=== PATIENT | female | born 1935 | race African-American/Black ===

== ENCOUNTER 2017-10-29 11:17 | Observation (INO) ==
[2017-10-29] MEDS ORDERED: ADENOSINE 6 MG/2 ML VIAL ONE ×3 (11:33→11:44)
[2017-10-29] MEDS ORDERED: ADENOSINE 6 MG/2 ML VIAL IV STA (11:45)
[2017-10-29 12:00] LABS: Basophils % 0.4 % (0.0-0.8); Eosinophils # 0.1 10*3/uL (0.0-0.87); Eosinophils % 1.5 % (0.00-10.9); Hematocrit 36.7 VOL% (35.7-47.0); Hemoglobin 11.4 GM/DL (12.0-16.0); Immature Granulocytes % 0.3 %; Immature Granulocytes Absolute 0.02 #; Lymphocytes # 3.3 10*3/uL (1.4-4.0); Lymphocytes % 41.8 % (21.3-54.2); Mean Corpuscular HGB Conc 31.1 GM/DL (32-36); Mean Corpuscular Hemoglobin 28 PG (27-34); Mean Corpuscular Volume 90.6 FL (87-102); Mean Platelet Volume 10.1 FL (9.6-12.0); Monocytes # 0.6 10*3/uL (0.11-0.8); Monocytes % 7.8 % (1.7-12.7); Neutrophils # 3.8 10*3/uL (1.4-7.4); Neutrophils % 48.2 % (38.7-73.9); Platelet Count 255 T/CUMM (130-400); Red Blood Count 4.05 MC/CUMM (3.8-5.5); Red Cell Distribution Width 13.8 % (9.3-17.3); White Blood Count 7.9 T/CUMM (4-12)
[2017-10-29 12:27] LABS: Alanine Aminotransferase 13 U/L (13-56); Alkaline Phosphatase 51 U/L (45-117); Aspartate Amino Transferase 14 U/L (0-37); Bilirubin,Total < 0.39 MG/DL (0.2-1.0); Blood Urea Nitrogen 17 MG/DL (7-18); Calcium 9.8 MG/DL (8.5-10.1); Glucose 147 MG/DL (74-106); Osmolality,Calculated 283.4 MOS/KG (273-304); Potassium 3.6 MMOL/L (3.5-5.1); Sodium 140 MMOL/L (136-145); Total Protein 7.4 G/DL (6.4-8.3); Troponin I Only < 0.015 NG/ML (0.00-0.045)
[2017-10-29] MEDS ORDERED: POTASSIUM CHLORIDE 20 MEQ TABLET PO PRN (14:50)
[2017-10-29] MEDS ORDERED: BISACODYL 5 MG TABLET PO PRN (14:50)
[2017-10-29] MEDS ORDERED: MAGNESIUM SULF RIDER 4 GM in PREMIX 1 EACH IV PRN ×2 (14:50→17:00)
[2017-10-29] MEDS ORDERED: ZALEPLON 5 MG CAPSULE PO PRN (14:50)
[2017-10-29] MEDS ORDERED: guaiFENesin/DM ER 600-30 MG TABLET PO PRN (14:50)
[2017-10-29] MEDS ORDERED: ACETAMINOPHEN 325 MG TABLET PO PRN (14:50)
[2017-10-29] MEDS ORDERED: MAGNESIUM SULF RIDER 2 GM in PREMIX 1 EACH IV PRN ×2 (14:50→17:00)
[2017-10-29] MEDS ORDERED: ONDANSETRON 4 MG/2 ML VIAL IV PRN (14:50)
[2017-10-29] MEDS: METOPROLOL SUCCINATE XL 50 MG TABLET PO SCH (18:33)
[2017-10-29] MEDS: ASPIRIN EC 81 MG TABLET PO SCH (18:34)
[2017-10-29] MEDS ORDERED: AMITRIPTYLINE 50 MG TABLET PO SCH (19:00)
[2017-10-29] MEDS ORDERED: ENOXAPARIN 30 MG/0.3 ML SYRINGE SUBCUT SCH (21:00)
[2017-10-29] MEDS ORDERED: SIMVASTATIN 40 MG TABLET PO SCH (21:00)
[2017-10-30 05:21] LABS: Basophils % 0.3 % (0.0-0.8); Eosinophils # 0.1 10*3/uL (0.0-0.87); Eosinophils % 1.4 % (0.00-10.9); Hematocrit 35.4 VOL% (35.7-47.0); Hemoglobin 11.5 GM/DL (12.0-16.0); Immature Granulocytes % 0.1 %; Immature Granulocytes Absolute 0.01 #; Lymphocytes # 2.8 10*3/uL (1.4-4.0); Lymphocytes % 36.6 % (21.3-54.2); Mean Corpuscular HGB Conc 32.5 GM/DL (32-36); Mean Corpuscular Hemoglobin 28 PG (27-34); Mean Corpuscular Volume 87.2 FL (87-102); Mean Platelet Volume 9.9 FL (9.6-12.0); Monocytes # 0.7 10*3/uL (0.11-0.8); Monocytes % 8.4 % (1.7-12.7); Neutrophils # 4.1 10*3/uL (1.4-7.4); Neutrophils % 53.2 % (38.7-73.9); Platelet Count 248 T/CUMM (130-400); Red Blood Count 4.06 MC/CUMM (3.8-5.5); Red Cell Distribution Width 13.7 % (9.3-17.3); White Blood Count 7.7 T/CUMM (4-12)
[2017-10-30 06:11] LABS: Calcium 9.7 MG/DL (8.5-10.1); Magnesium 2.3 MG/DL (1.8-2.4); Osmolality,Calculated 279.4 MOS/KG (273-304); Risk Ratio 2.65
[2017-10-30] MEDS ORDERED: PANTOPRAZOLE 40 MG TABLET PO SCH (09:00)
[2017-10-30] MEDS ORDERED: amLODIPine 10 MG TABLET PO SCH (09:00)
[2017-10-30] MEDS: METOPROLOL SUCCINATE XL 50 MG TABLET PO SCH (09:22)
[2017-10-30] MEDS: ASPIRIN EC 81 MG TABLET PO SCH (09:22)
[2017-10-30 11:33] VITALS: BP 132/92
== END 2017-10-30 12:20 | disposition home or self-care (01) ==
LOC: N.ED 11:17 → N.EDINP 11:17 → N.TELES 16:30
PROVIDERS: ADMIT Internal Medicine Cardiovascular Disease; ATTEND Internal Medicine Cardiovascular Disease

== ENCOUNTER 2017-11-07 16:53 | Inpatient (IN) ==
[2017-11-07] MEDS ORDERED: SODIUM CHLORIDE 0.9% 1,000 ML IV STA (16:58)
[2017-11-07] MEDS ORDERED: DILTIAZEM 50 MG/10 ML VIAL IV STA (16:58)
[2017-11-07] MEDS ORDERED: DILTIAZEM 25 MG/5 ML VIAL IV STA (17:05)
[2017-11-07] MEDS ORDERED: MAGNESIUM SULF RIDER 2 GM in PREMIX 1 EACH IV PRN (17:33)
[2017-11-07] MEDS ORDERED: ONDANSETRON 4 MG/2 ML VIAL IV PRN (17:33)
[2017-11-07] MEDS ORDERED: MAGNESIUM SULF RIDER 4 GM in PREMIX 1 EACH IV PRN (17:33)
[2017-11-07] MEDS ORDERED: ACETAMINOPHEN 325 MG TABLET PO PRN (17:33)
[2017-11-07] MEDS ORDERED: DOCUSATE SODIUM 100 MG CAPSULE PO PRN (17:33)
[2017-11-07] MEDS ORDERED: ACETAMINOPHEN 500 MG TABLET PO STA (17:42)
[2017-11-07] MEDS ORDERED: ACETAMINOPHEN 500 MG TABLET ONE (17:42)
[2017-11-07 17:50] LABS: Basophils % 0.4 % (0.0-0.8); Eosinophils # 0.1 10*3/uL (0.0-0.87); Eosinophils % 1.3 % (0.00-10.9); Hematocrit 31.8 VOL% (35.7-47.0); Immature Granulocytes % 0.1 %; Immature Granulocytes Absolute 0.01 #; Lymphocytes # 1.5 10*3/uL (1.4-4.0); Lymphocytes % 20.7 % (21.3-54.2); Mean Corpuscular HGB Conc 31.4 GM/DL (32-36); Mean Corpuscular Hemoglobin 28 PG (27-34); Mean Corpuscular Volume 89.8 FL (87-102); Mean Platelet Volume 9.7 FL (9.6-12.0); Monocytes # 0.5 10*3/uL (0.11-0.8); Monocytes % 6.7 % (1.7-12.7); Neutrophils # 5.1 10*3/uL (1.4-7.4); Neutrophils % 70.8 % (38.7-73.9); Platelet Count 232 T/CUMM (130-400); Red Blood Count 3.54 MC/CUMM (3.8-5.5); Red Cell Distribution Width 13.5 % (9.3-17.3); White Blood Count 7.1 T/CUMM (4-12)
[2017-11-07 17:59] LABS: INR 1.2; PT Patient Result 12.1 SECS
[2017-11-07 18:11] LABS: Alanine Aminotransferase 10 U/L (13-56); Albumin 3.2 G/DL (3.4-5.0); Alkaline Phosphatase 46 U/L (45-117); Aspartate Amino Transferase 13 U/L (0-37); Bilirubin,Total < 0.39 MG/DL (0.2-1.0); Blood Urea Nitrogen 18 MG/DL (7-18); Calcium 8.6 MG/DL (8.5-10.1); Glucose 123 MG/DL (74-106); Osmolality,Calculated 288.8 MOS/KG (273-304); Sodium 144 MMOL/L (136-145); Total Protein 6.3 G/DL (6.4-8.3); Troponin I Only 0.044 NG/ML (0.00-0.045)
[2017-11-07] MEDS: DILTIAZEM 60 MG TABLET PO SCH (21:08)
[2017-11-07] MEDS: SODIUM CHLORIDE 0.9% 1,000 ML IV SCH (21:08)
[2017-11-07] MEDS: ENOXAPARIN 40 MG/0.4 ML SYRINGE SUBCUT SCH (21:09)
[2017-11-08 05:14] LABS: Basophils % 0.3 % (0.0-0.8); Eosinophils # 0.1 10*3/uL (0.0-0.87); Eosinophils % 1.6 % (0.00-10.9); Hematocrit 30.8 VOL% (35.7-47.0); Hemoglobin 9.7 GM/DL (12.0-16.0); Immature Granulocytes % 0.3 %; Immature Granulocytes Absolute 0.02 #; Lymphocytes # 2.2 10*3/uL (1.4-4.0); Mean Corpuscular HGB Conc 31.5 GM/DL (32-36); Mean Corpuscular Hemoglobin 28 PG (27-34); Mean Corpuscular Volume 89.5 FL (87-102); Monocytes # 0.6 10*3/uL (0.11-0.8); Monocytes % 9.1 % (1.7-12.7); Neutrophils # 3.9 10*3/uL (1.4-7.4); Neutrophils % 56.7 % (38.7-73.9); Platelet Count 226 T/CUMM (130-400); Red Blood Count 3.44 MC/CUMM (3.8-5.5); Red Cell Distribution Width 13.6 % (9.3-17.3); White Blood Count 6.9 T/CUMM (4-12)
[2017-11-08] MEDS: SODIUM CHLORIDE 0.9% 1,000 ML IV SCH (05:37)
[2017-11-08 05:52] LABS: Albumin 3.1 G/DL (3.4-5.0); Bilirubin,Total 0.5 MG/DL (0.2-1.0); Calcium 8.7 MG/DL (8.5-10.1); Potassium 3.4 MMOL/L (3.5-5.1); Total Protein 5.9 G/DL (6.4-8.3)
[2017-11-08] MEDS ORDERED: DILTIAZEM 50 MG/10 ML VIAL IV ONE (06:40)
[2017-11-08] MEDS ORDERED: DILTIAZEM INJ 100 MG in SODIUM CHLORIDE 0.9% 100 ML IV SCH (07:00)
[2017-11-08] MEDS ORDERED: SODIUM CHLORIDE 0.9% 1,000 ML IV SCH (07:00)
[2017-11-08] MEDS: PANTOPRAZOLE 40 MG TABLET PO SCH (08:33)
[2017-11-08] MEDS: DILTIAZEM 60 MG TABLET PO SCH (08:33)
[2017-11-08] MEDS: DILTIAZEM 30 MG TABLET PO SCH ×4 (09:20→21:04)
[2017-11-08] MEDS ORDERED: LOPERAMIDE 2 MG CAPSULE PO PRN (10:39)
[2017-11-08] MEDS ORDERED: MAGNESIUM OXIDE 400 MG TABLET PO SCH (11:00)
[2017-11-08] MEDS: AMITRIPTYLINE 50 MG TABLET PO SCH (18:23)
[2017-11-08] MEDS: ENOXAPARIN 40 MG/0.4 ML SYRINGE SUBCUT SCH (21:04)
[2017-11-08] MEDS: SIMVASTATIN 40 MG TABLET PO SCH (21:04)
[2017-11-08] MEDS: POTASSIUM CHLORIDE 20 MEQ TABLET PO PRN (21:05)
[2017-11-09 04:34] LABS: Basophils % 0.4 % (0.0-0.8); Eosinophils # 0.1 10*3/uL (0.0-0.87); Eosinophils % 1.1 % (0.00-10.9); Hematocrit 35.1 VOL% (35.7-47.0); Hemoglobin 11.2 GM/DL (12.0-16.0); Immature Granulocytes % 0.3 %; Immature Granulocytes Absolute 0.02 #; Lymphocytes # 1.9 10*3/uL (1.4-4.0); Lymphocytes % 24.2 % (21.3-54.2); Mean Corpuscular HGB Conc 31.9 GM/DL (32-36); Mean Corpuscular Hemoglobin 28 PG (27-34); Mean Corpuscular Volume 87.8 FL (87-102); Mean Platelet Volume 10.1 FL (9.6-12.0); Monocytes # 0.6 10*3/uL (0.11-0.8); Monocytes % 7.3 % (1.7-12.7); Neutrophils # 5.2 10*3/uL (1.4-7.4); Neutrophils % 66.7 % (38.7-73.9); Platelet Count 239 T/CUMM (130-400); Red Cell Distribution Width 13.4 % (9.3-17.3); White Blood Count 7.9 T/CUMM (4-12)
[2017-11-09 05:03] LABS: Calcium 9.5 MG/DL (8.5-10.1); Osmolality,Calculated 279.3 MOS/KG (273-304); Potassium 3.6 MMOL/L (3.5-5.1)
[2017-11-09] MEDS ORDERED: ADENOSINE 6 MG/2 ML VIAL ONE (07:41)
[2017-11-09] MEDS: PANTOPRAZOLE 40 MG TABLET PO SCH ×2 (08:47→09:28)
[2017-11-09] MEDS: ASPIRIN EC 81 MG TABLET PO SCH (08:47)
[2017-11-09] MEDS: MAGNESIUM OXIDE 400 MG TABLET PO SCH (08:47)
[2017-11-09] MEDS: METOPROLOL SUCCINATE XL 50 MG TABLET PO SCH (08:47)
[2017-11-09] MEDS ORDERED: diphenhydrAMINE CAP 25 MG CAPSULE PO PRN (15:21)
[2017-11-09] MEDS ORDERED: MAGNESIUM HYDROXIDE SUSP 30 ML UDCUP PO PRN (15:22)
[2017-11-09] MEDS: AMITRIPTYLINE 50 MG TABLET PO SCH (17:59)
[2017-11-09] MEDS: ENOXAPARIN 40 MG/0.4 ML SYRINGE SUBCUT SCH (21:17)
[2017-11-09] MEDS: SIMVASTATIN 40 MG TABLET PO SCH (21:17)
[2017-11-10 06:01] LABS: Basophils % 0.4 % (0.0-0.8); Eosinophils # 0.1 10*3/uL (0.0-0.87); Eosinophils % 0.8 % (0.00-10.9); Hematocrit 35.7 VOL% (35.7-47.0); Hemoglobin 11.9 GM/DL (12.0-16.0); Immature Granulocytes % 0.3 %; Immature Granulocytes Absolute 0.02 #; Lymphocytes % 26.1 % (21.3-54.2); Mean Corpuscular HGB Conc 33.3 GM/DL (32-36); Mean Corpuscular Hemoglobin 29 PG (27-34); Mean Corpuscular Volume 85.4 FL (87-102); Mean Platelet Volume 9.8 FL (9.6-12.0); Monocytes # 0.7 10*3/uL (0.11-0.8); Monocytes % 9.3 % (1.7-12.7); Neutrophils # 4.9 10*3/uL (1.4-7.4); Neutrophils % 63.1 % (38.7-73.9); Platelet Count 248 T/CUMM (130-400); Red Blood Count 4.18 MC/CUMM (3.8-5.5); Red Cell Distribution Width 13.4 % (9.3-17.3); White Blood Count 7.8 T/CUMM (4-12)
[2017-11-10 06:28] LABS: Calcium 9.7 MG/DL (8.5-10.1); Osmolality,Calculated 275.7 MOS/KG (273-304); Potassium 3.3 MMOL/L (3.5-5.1)
[2017-11-10] MEDS ORDERED: HEPARIN/NACL 0.9% 2 UNITS/ML 1,000 ML IV ONE ×2 (07:23→07:30)
[2017-11-10] MEDS ORDERED: MIDAZOLAM 2 MG/2 ML VIAL ONE ×2 (07:23→08:36)
[2017-11-10] MEDS ORDERED: fentaNYL 100 MCG/2 ML VIAL ONE ×2 (07:23→08:36)
[2017-11-10] MEDS ORDERED: LIDOCAINE 1% 20 ML VIAL ONE (07:23)
[2017-11-10] MEDS ORDERED: HEPARIN 5,000 UNIT/1 ML VIAL ONE (08:07)
[2017-11-10] MEDS ORDERED: ISOPROTERENOL 1 MG/5 ML VIAL IV ONE (08:55)
[2017-11-10] MEDS: MAGNESIUM OXIDE 400 MG TABLET PO SCH (14:20)
[2017-11-10] MEDS: POTASSIUM CHLORIDE 20 MEQ TABLET PO PRN ×3 (14:20→21:59)
[2017-11-10] MEDS: ASPIRIN EC 81 MG TABLET PO SCH (14:20)
[2017-11-10] MEDS: PANTOPRAZOLE 40 MG TABLET PO SCH ×2 (14:23→14:46)
[2017-11-10] MEDS: METOPROLOL SUCCINATE XL 50 MG TABLET PO SCH ×2 (14:46→21:59)
[2017-11-10] MEDS ORDERED: METOPROLOL TARTRATE 5 MG/5 ML VIAL IV ONE (16:30)
[2017-11-10] MEDS: AMITRIPTYLINE 50 MG TABLET PO SCH (18:15)
[2017-11-10] MEDS: SIMVASTATIN 40 MG TABLET PO SCH (21:59)
[2017-11-10] MEDS: ENOXAPARIN 40 MG/0.4 ML SYRINGE SUBCUT SCH (21:59)
[2017-11-11 05:55] LABS: Basophils % 0.1 % (0.0-0.8); Eosinophils # 0.1 10*3/uL (0.0-0.87); Eosinophils % 0.9 % (0.00-10.9); Hematocrit 34.6 VOL% (35.7-47.0); Hemoglobin 11.4 GM/DL (12.0-16.0); Immature Granulocytes % 0.2 %; Immature Granulocytes Absolute 0.02 #; Lymphocytes # 2.1 10*3/uL (1.4-4.0); Lymphocytes % 23.6 % (21.3-54.2); Mean Corpuscular HGB Conc 32.9 GM/DL (32-36); Mean Corpuscular Hemoglobin 29 PG (27-34); Mean Corpuscular Volume 86.5 FL (87-102); Mean Platelet Volume 10.3 FL (9.6-12.0); Monocytes % 10.7 % (1.7-12.7); Neutrophils # 5.8 10*3/uL (1.4-7.4); Neutrophils % 64.5 % (38.7-73.9); Platelet Count 228 T/CUMM (130-400); Red Cell Distribution Width 13.5 % (9.3-17.3)
[2017-11-11 06:23] LABS: Calcium 9.6 MG/DL (8.5-10.1); Osmolality,Calculated 278.5 MOS/KG (273-304); Potassium 4.2 MMOL/L (3.5-5.1)
[2017-11-11] MEDS: MAGNESIUM OXIDE 400 MG TABLET PO SCH (08:39)
[2017-11-11] MEDS: PANTOPRAZOLE 40 MG TABLET PO SCH (08:39)
[2017-11-11] MEDS: ASPIRIN EC 81 MG TABLET PO SCH (08:39)
[2017-11-11] MEDS: METOPROLOL SUCCINATE XL 50 MG TABLET PO SCH (08:39)
[2017-11-11] MEDS: DILTIAZEM 30 MG TABLET PO SCH ×2 (15:36→21:10)
[2017-11-11] MEDS: AMITRIPTYLINE 50 MG TABLET PO SCH (18:06)
[2017-11-11] MEDS: SIMVASTATIN 40 MG TABLET PO SCH (21:10)
[2017-11-11] MEDS: METOPROLOL SUCCINATE XL 100 MG TABLET PO SCH (21:10)
[2017-11-11] MEDS: ENOXAPARIN 40 MG/0.4 ML SYRINGE SUBCUT SCH (21:11)
[2017-11-12 04:42] LABS: Basophils % 0.4 % (0.0-0.8); Eosinophils # 0.2 10*3/uL (0.0-0.87); Eosinophils % 1.8 % (0.00-10.9); Hematocrit 34.1 VOL% (35.7-47.0); Hemoglobin 10.8 GM/DL (12.0-16.0); Immature Granulocytes % 0.4 %; Immature Granulocytes Absolute 0.03 #; Lymphocytes # 2.6 10*3/uL (1.4-4.0); Lymphocytes % 30.7 % (21.3-54.2); Mean Corpuscular HGB Conc 31.7 GM/DL (32-36); Mean Corpuscular Hemoglobin 28 PG (27-34); Mean Corpuscular Volume 88.1 FL (87-102); Mean Platelet Volume 10.3 FL (9.6-12.0); Monocytes # 0.9 10*3/uL (0.11-0.8); Monocytes % 10.2 % (1.7-12.7); Neutrophils # 4.8 10*3/uL (1.4-7.4); Neutrophils % 56.5 % (38.7-73.9); Platelet Count 210 T/CUMM (130-400); Red Blood Count 3.87 MC/CUMM (3.8-5.5); Red Cell Distribution Width 13.3 % (9.3-17.3); White Blood Count 8.5 T/CUMM (4-12)
[2017-11-12 05:10] LABS: Free T4 (Free Thyroxine) 1.12 NG/DL (0.76-1.46); Osmolality,Calculated 275.8 MOS/KG (273-304); Thyroid Stimulating Hormone 0.685 uIU/ml (0.358-3.74)
[2017-11-12] MEDS: PANTOPRAZOLE 40 MG TABLET PO SCH (08:39)
[2017-11-12] MEDS: MAGNESIUM OXIDE 400 MG TABLET PO SCH (08:39)
[2017-11-12] MEDS: METOPROLOL SUCCINATE XL 100 MG TABLET PO SCH (08:39)
[2017-11-12] MEDS: DILTIAZEM 30 MG TABLET PO SCH (08:39)
[2017-11-12] MEDS: ASPIRIN EC 81 MG TABLET PO SCH (08:39)
[2017-11-12 08:48] VITALS: BP 116/72
== END 2017-11-12 12:55 | disposition home or self-care (01) | DRG 274 ==
LOC: EDBD → EDUNIT# → N.EDINP 16:53 → N.ED 16:53 → N.TELES 18:35
PROVIDERS: ADMIT Internal Medicine Cardiovascular Disease; ATTEND Internal Medicine Cardiovascular Disease

== ENCOUNTER 2018-06-05 08:59 | Inpatient (IN) ==
[2018-06-05] MEDS ORDERED: hydrALAZINE 20 MG/1 ML VIAL IV STA ×2 (09:38→11:42)
[2018-06-05 10:36] LABS: Basophils % 0.3 % (0.0-0.8); Eosinophils # 0.1 10*3/uL (0.0-0.87); Eosinophils % 1.8 % (0.00-10.9); Hematocrit 41.5 VOL% (35.7-47.0); Hemoglobin 13.1 GM/DL (12.0-16.0); Immature Granulocytes % 0.1 %; Immature Granulocytes Absolute 0.01 #; Lymphocytes # 2.7 10*3/uL (1.4-4.0); Lymphocytes % 36.6 % (21.3-54.2); Mean Corpuscular HGB Conc 31.6 GM/DL (32-36); Mean Corpuscular Hemoglobin 28 PG (27-34); Mean Corpuscular Volume 88.5 FL (87-102); Mean Platelet Volume 10.5 FL (9.6-12.0); Monocytes # 0.7 10*3/uL (0.11-0.8); Monocytes % 9.4 % (1.7-12.7); Neutrophils # 3.8 10*3/uL (1.4-7.4); Neutrophils % 51.8 % (38.7-73.9); Platelet Count 248 T/CUMM (130-400); Red Blood Count 4.69 MC/CUMM (3.8-5.5); Red Cell Distribution Width 14.3 % (9.3-17.3); White Blood Count 7.3 T/CUMM (4-12)
[2018-06-05 10:49] LABS: Apearance,Urine CLOUDY (Clear); Bilirubin,Urine Negative (Negative); Blood, Urine Small mg/dL (Negative); Glucose,Urine (UA) Negative (Negative); Ketones,Urine Negative (Negative); Nitrite,Urine Negative (Negative); Protein,Urine 30 MG/DL; RBC,Urine 11 /HPF (0-4); Squamous Epithelial Cell,Urine Occasional /HPF (0-10); Urine Color Yellow (Yellow); Urine Specific Gravity 1.006 (1.001-1.035); Urine Urobilinogen < 2.0 EU/DL (0.2-1.0); WBC,Urine 149 /HPF (0-6)
[2018-06-05 11:05] LABS: Calcium 9.6 MG/DL (8.5-10.1); Osmolality,Calculated 282.1 MOS/KG (273-304); Potassium 4.4 MMOL/L (3.5-5.1)
[2018-06-05] MEDS ORDERED: CIPROFLOXACIN INJ 400 MG in PREMIX 1 EACH IV STA (11:43)
[2018-06-05] MEDS ORDERED: KETOROLAC 30 MG/1 ML VIAL ONE (13:17)
[2018-06-05] MEDS ORDERED: KETOROLAC 30 MG/1 ML VIAL IV STA (13:24)
[2018-06-05] MEDS ORDERED: ACETAMINOPHEN 325 MG TABLET PO PRN (13:48)
[2018-06-05] MEDS ORDERED: ONDANSETRON 4 MG/2 ML VIAL IV PRN (13:48)
[2018-06-05] MEDS ORDERED: SODIUM CHLORIDE 0.9% 1,000 ML IV SCH (14:00)
[2018-06-05] MEDS: DEXT 5% NACL 0.45% KCL 20 MEQ 20 MEQ/1,000 ML BAG IV SCH (18:40)
[2018-06-05] MEDS: DONEPEZIL 10 MG TABLET PO SCH (20:15)
[2018-06-05] MEDS: SIMVASTATIN 40 MG TABLET PO SCH (20:15)
[2018-06-05] MEDS: MECLIZINE 25 MG TABLET PO SCH (20:15)
[2018-06-05] MEDS: MEMANTINE 5 MG TABLET PO SCH (20:15)
[2018-06-05] MEDS: MELATONIN 3 MG TABLET PO SCH (20:15)
[2018-06-05] MEDS: LATANOPROST 0.005% OPH SOLN 2.5 ML BOTTLE BOTH EYES SCH (20:15)
[2018-06-05] MEDS ORDERED: ASPIRIN 325 MG TABLET ONE (22:27)
[2018-06-05] MEDS ORDERED: NITROGLYCERIN SL 0.4 MG TABLET SL ONE (22:28)
[2018-06-05] MEDS ORDERED: CLORAZEPATE 3.75 MG TABLET PO ONE (22:41)
[2018-06-05] MEDS ORDERED: CLORAZEPATE 3.75 MG TABLET ONE (22:45)
[2018-06-06] MEDS: CIPROFLOXACIN INJ 400 MG in PREMIX 1 EACH IV SCH ×2 (02:02→14:21)
[2018-06-06] MEDS: hydrALAZINE 20 MG/1 ML VIAL IV PRN ×3 (04:03→16:46)
[2018-06-06 05:54] LABS: Basophils % 0.3 % (0.0-0.8); Eosinophils # 0.1 10*3/uL (0.0-0.87); Hematocrit 37.2 VOL% (35.7-47.0); Hemoglobin 11.7 GM/DL (12.0-16.0); Immature Granulocytes % 0.3 %; Immature Granulocytes Absolute 0.02 #; Lymphocytes # 2.3 10*3/uL (1.4-4.0); Lymphocytes % 29.5 % (21.3-54.2); Mean Corpuscular HGB Conc 31.5 GM/DL (32-36); Mean Corpuscular Hemoglobin 27 PG (27-34); Mean Corpuscular Volume 87.1 FL (87-102); Mean Platelet Volume 10.8 FL (9.6-12.0); Monocytes # 0.8 10*3/uL (0.11-0.8); Monocytes % 9.5 % (1.7-12.7); Neutrophils # 4.7 10*3/uL (1.4-7.4); Neutrophils % 59.4 % (38.7-73.9); Platelet Count 253 T/CUMM (130-400); Red Blood Count 4.27 MC/CUMM (3.8-5.5); Red Cell Distribution Width 14.3 % (9.3-17.3); White Blood Count 7.9 T/CUMM (4-12)
[2018-06-06 06:07] LABS: Calcium 8.3 MG/DL (8.5-10.1); Osmolality,Calculated 279.5 MOS/KG (273-304); Potassium 3.3 MMOL/L (3.5-5.1)
[2018-06-06 06:11] LABS: CKMB % 0.9 %
[2018-06-06 06:15] LABS: Troponin I 0.054 NG/ML (0.00-0.045)
[2018-06-06] MEDS: MEMANTINE 5 MG TABLET PO SCH ×2 (11:51→20:29)
[2018-06-06] MEDS: DEXT 5% NACL 0.45% KCL 20 MEQ 20 MEQ/1,000 ML BAG IV SCH (11:51)
[2018-06-06] MEDS: PANTOPRAZOLE 40 MG TABLET PO SCH (11:51)
[2018-06-06] MEDS: CALCIUM (CITRATE)/VITAMIN D 200 MG-125 UNIT TABLET PO SCH (11:51)
[2018-06-06] MEDS: METOPROLOL SUCCINATE XL 100 MG TABLET PO SCH (11:51)
[2018-06-06] MEDS: MECLIZINE 25 MG TABLET PO SCH ×4 (11:51→20:29)
[2018-06-06] MEDS ORDERED: CYANOCOBALAMIN 1000 MCG/1 ML VIAL IM ONE (13:36)
[2018-06-06] MEDS ORDERED: LORazepam 2 MG/1 ML VIAL IV ONE (13:50)
[2018-06-06 16:51] LABS: CKMB % 0.9 %; Troponin I 0.023 NG/ML (0.00-0.045)
[2018-06-06] MEDS: MELATONIN 3 MG TABLET PO SCH (20:29)
[2018-06-06] MEDS: SIMVASTATIN 40 MG TABLET PO SCH (20:29)
[2018-06-06] MEDS: DONEPEZIL 10 MG TABLET PO SCH (20:29)
[2018-06-06] MEDS: LATANOPROST 0.005% OPH SOLN 2.5 ML BOTTLE BOTH EYES SCH (20:36)
[2018-06-07] MEDS: DEXT 5% NACL 0.45% KCL 20 MEQ 20 MEQ/1,000 ML BAG IV SCH ×2 (01:25→18:52)
[2018-06-07] MEDS: CIPROFLOXACIN INJ 400 MG in PREMIX 1 EACH IV SCH ×2 (01:26→13:04)
[2018-06-07] MEDS: hydrALAZINE 20 MG/1 ML VIAL IV PRN (04:45)
[2018-06-07] MEDS: CALCIUM (CITRATE)/VITAMIN D 200 MG-125 UNIT TABLET PO SCH (08:57)
[2018-06-07] MEDS: PANTOPRAZOLE 40 MG TABLET PO SCH (08:58)
[2018-06-07] MEDS: CYANOCOBALAMIN 500 MCG TABLET PO SCH (08:58)
[2018-06-07] MEDS: MEMANTINE 5 MG TABLET PO SCH ×2 (08:58→21:28)
[2018-06-07] MEDS: METOPROLOL SUCCINATE XL 100 MG TABLET PO SCH (08:58)
[2018-06-07] MEDS: MECLIZINE 25 MG TABLET PO SCH ×4 (08:58→21:28)
[2018-06-07] MEDS ORDERED: amLODIPine 5 MG TABLET PO SCH (12:30)
[2018-06-07] MEDS: ASPIRIN EC 81 MG TABLET PO SCH (13:04)
[2018-06-07] MEDS: MELATONIN 3 MG TABLET PO SCH (21:27)
[2018-06-07] MEDS: DONEPEZIL 10 MG TABLET PO SCH (21:28)
[2018-06-07] MEDS: SIMVASTATIN 40 MG TABLET PO SCH (21:28)
[2018-06-07] MEDS: LATANOPROST 0.005% OPH SOLN 2.5 ML BOTTLE BOTH EYES SCH (21:30)
[2018-06-08] MEDS: CIPROFLOXACIN INJ 400 MG in PREMIX 1 EACH IV SCH ×2 (01:12→13:38)
[2018-06-08] MEDS: hydrALAZINE 20 MG/1 ML VIAL IV PRN (04:15)
[2018-06-08] MEDS: DEXT 5% NACL 0.45% KCL 20 MEQ 20 MEQ/1,000 ML BAG IV SCH ×3 (04:18→19:19)
[2018-06-08 06:27] LABS: Basophils % 0.4 % (0.0-0.8); Eosinophils # 0.2 10*3/uL (0.0-0.87); Eosinophils % 3.4 % (0.00-10.9); Hematocrit 37.3 VOL% (35.7-47.0); Hemoglobin 11.9 GM/DL (12.0-16.0); Immature Granulocytes % 0.1 %; Immature Granulocytes Absolute 0.01 #; Lymphocytes # 2.5 10*3/uL (1.4-4.0); Lymphocytes % 35.1 % (21.3-54.2); Mean Corpuscular HGB Conc 31.9 GM/DL (32-36); Mean Corpuscular Hemoglobin 28 PG (27-34); Mean Corpuscular Volume 86.7 FL (87-102); Mean Platelet Volume 10.9 FL (9.6-12.0); Monocytes # 0.7 10*3/uL (0.11-0.8); Neutrophils # 3.6 10*3/uL (1.4-7.4); Platelet Count 230 T/CUMM (130-400)
[2018-06-08 06:53] LABS: Calcium 8.7 MG/DL (8.5-10.1); Osmolality,Calculated 280.4 MOS/KG (273-304)
[2018-06-08 07:02] LABS: Hypochromasia 1+; Platelet Estimate Adequate
[2018-06-08] MEDS: amLODIPine 10 MG TABLET PO SCH (09:18)
[2018-06-08] MEDS: MEMANTINE 5 MG TABLET PO SCH ×2 (09:18→21:27)
[2018-06-08] MEDS: METOPROLOL SUCCINATE XL 100 MG TABLET PO SCH (09:18)
[2018-06-08] MEDS: MECLIZINE 25 MG TABLET PO SCH ×4 (09:18→21:27)
[2018-06-08] MEDS: CYANOCOBALAMIN 500 MCG TABLET PO SCH (09:18)
[2018-06-08] MEDS: PANTOPRAZOLE 40 MG TABLET PO SCH (09:18)
[2018-06-08] MEDS: ASPIRIN EC 81 MG TABLET PO SCH (09:18)
[2018-06-08] MEDS ORDERED: MAGNESIUM HYDROXIDE SUSP 30 ML UDCUP PO ONE (09:58)
[2018-06-08] MEDS: DOCUSATE SODIUM 100 MG CAPSULE PO SCH ×2 (10:21→21:27)
[2018-06-08] MEDS: CALCIUM (CITRATE)/VITAMIN D 200 MG-125 UNIT TABLET PO SCH (10:26)
[2018-06-08] MEDS: SIMVASTATIN 40 MG TABLET PO SCH (21:27)
[2018-06-08] MEDS: MELATONIN 3 MG TABLET PO SCH (21:27)
[2018-06-08] MEDS: DONEPEZIL 10 MG TABLET PO SCH (21:27)
[2018-06-08] MEDS: LATANOPROST 0.005% OPH SOLN 2.5 ML BOTTLE BOTH EYES SCH (21:28)
[2018-06-08] MEDS ORDERED: ALUMINUM/MAGNES/SIMETH MAX STR 30 ML UDCUP PO PRN (23:15)
[2018-06-09] MEDS: CIPROFLOXACIN INJ 400 MG in PREMIX 1 EACH IV SCH ×2 (01:38→13:48)
[2018-06-09] MEDS ORDERED: ZIPRASIDONE 20 MG/1 ML VIAL IM ONE (04:00)
[2018-06-09 06:00] LABS: Basophils % 0.4 % (0.0-0.8); Eosinophils # 0.2 10*3/uL (0.0-0.87); Eosinophils % 3.1 % (0.00-10.9); Hematocrit 40.2 VOL% (35.7-47.0); Hemoglobin 12.4 GM/DL (12.0-16.0); Immature Granulocytes % 0.1 %; Immature Granulocytes Absolute 0.01 #; Lymphocytes % 26.7 % (21.3-54.2); Mean Corpuscular HGB Conc 30.8 GM/DL (32-36); Mean Corpuscular Hemoglobin 27 PG (27-34); Mean Corpuscular Volume 88.4 FL (87-102); Mean Platelet Volume 10.1 FL (9.6-12.0); Monocytes # 0.7 10*3/uL (0.11-0.8); Monocytes % 9.9 % (1.7-12.7); Neutrophils # 4.4 10*3/uL (1.4-7.4); Neutrophils % 59.8 % (38.7-73.9); Platelet Count 261 T/CUMM (130-400); Red Blood Count 4.55 MC/CUMM (3.8-5.5); Red Cell Distribution Width 14.8 % (9.3-17.3); White Blood Count 7.4 T/CUMM (4-12)
[2018-06-09 06:26] LABS: Calcium 9.6 MG/DL (8.5-10.1); Osmolality,Calculated 279.5 MOS/KG (273-304); Potassium 4.3 MMOL/L (3.5-5.1)
[2018-06-09] MEDS: CALCIUM (CITRATE)/VITAMIN D 200 MG-125 UNIT TABLET PO SCH (08:41)
[2018-06-09] MEDS: CYANOCOBALAMIN 500 MCG TABLET PO SCH (08:41)
[2018-06-09] MEDS: MEMANTINE 5 MG TABLET PO SCH (08:41)
[2018-06-09] MEDS: MECLIZINE 25 MG TABLET PO SCH ×3 (08:41→17:08)
[2018-06-09] MEDS: DOCUSATE SODIUM 100 MG CAPSULE PO SCH (08:41)
[2018-06-09] MEDS: PANTOPRAZOLE 40 MG TABLET PO SCH (08:41)
[2018-06-09] MEDS: ASPIRIN EC 81 MG TABLET PO SCH (08:41)
[2018-06-09] MEDS: METOPROLOL SUCCINATE XL 100 MG TABLET PO SCH (08:42)
[2018-06-09] MEDS: amLODIPine 10 MG TABLET PO SCH (08:42)
[2018-06-09] MEDS: DEXT 5% NACL 0.45% KCL 20 MEQ 20 MEQ/1,000 ML BAG IV SCH (10:31)
[2018-06-09] MEDS ORDERED: METOPROLOL SUCCINATE XL 100 MG TABLET PO SCH (11:39)
[2018-06-09 12:42] VITALS: BP 151/87
== END 2018-06-09 17:31 | disposition home health service (06) | DRG 149 ==
LOC: N.ED 08:59 → N.EDINP 13:48 → N.5E 14:31
PROVIDERS: ADMIT Hospitalist; ATTEND Hospitalist

== ENCOUNTER 2020-05-11 17:52 | Inpatient (IN) ==
[2020-05-11] MEDS ORDERED: ASPIRIN 325 MG TABLET PO STA (18:05)
[2020-05-11 18:30] LABS: Basophils % 0.4 % (0.0-0.8); Eosinophils # 0.2 10*3/uL (0.0-0.87); Eosinophils % 2.6 % (0.00-10.9); Hematocrit 31.7 VOL% (35.7-47.0); Hemoglobin 9.7 GM/DL (12.0-16.0); Immature Granulocytes % 0.3 %; Immature Granulocytes Absolute 0.02 #; Lymphocytes # 2.3 10*3/uL (1.4-4.0); Lymphocytes % 31.3 % (21.3-54.2); Mean Corpuscular HGB Conc 30.6 GM/DL (32-36); Mean Corpuscular Volume 86.4 FL (87-102); Mean Platelet Volume 9.3 FL (9.6-12.0); Monocytes % 8.8 % (1.7-12.7); Neutrophils % 56.6 % (38.7-73.9); Platelet Count 239 T/CUMM (130-400); Red Blood Count 3.67 MC/CUMM (3.8-5.5); Red Cell Distribution Width 17.3 % (9.3-17.3); White Blood Count 7.3 T/CUMM (4-12)
[2020-05-11 18:47] LABS: INR 1.2; PT Patient Result 12.4 SECS (9.8-11.9)
[2020-05-11 19:04] LABS: Alanine Aminotransferase 14 U/L (13-56); Albumin 3.1 G/DL (3.4-5.0); Alkaline Phosphatase 59 U/L (45-117); Aspartate Amino Transferase 14 U/L (0-37); Blood Urea Nitrogen 16 MG/DL (7-18); Calcium 10.4 MG/DL (8.5-10.1); Estimated Glom Filtration Rate 64 ML/MIN; Glucose 96 MG/DL (74-106); Osmolality,Calculated 279.4 MOS/KG (273-304); Total Protein 7.2 G/DL (6.4-8.3); Troponin I < 0.015 NG/ML (0.00-0.045)
[2020-05-11] MEDS ORDERED: VANCOMYCIN INJ 1,000 MG in SODIUM CHLORIDE 0.9% 250 ML IV STA (19:26)
[2020-05-11] MEDS ORDERED: LEVOFLOXACIN INJ 750 MG in PREMIX 1 EACH IV STA (19:27)
[2020-05-11] MEDS ORDERED: VANCOMYCIN INJ 2,000 MG in SODIUM CHLORIDE 0.9% 500 ML IV STA (19:35)
[2020-05-11 19:38] LABS: Apearance,Urine CLOUDY (Clear); Bilirubin,Urine Negative (Negative); Blood, Urine Small mg/dL (Negative); Glucose,Urine (UA) Negative (Negative); Ketones,Urine Negative (Negative); Mucus,Urine Few /LPF (Occasional); Nitrite,Urine Negative (Negative); Protein,Urine 100 MG/DL; RBC,Urine 21 /HPF (0-4); Squamous Epithelial Cell,Urine Occasional /HPF (0-10); Urine Color Amber (Yellow); Urine Specific Gravity 1.015 (1.001-1.035); Urine Urobilinogen < 2.0 EU/DL (0.2-1.0); WBC,Urine 298 /HPF (0-6)
[2020-05-11] MEDS ORDERED: DOCUSATE SODIUM 100 MG CAPSULE PO PRN (20:54)
[2020-05-11] MEDS ORDERED: ONDANSETRON 4 MG/2 ML VIAL IV PRN (20:54)
[2020-05-11] MEDS ORDERED: ENOXAPARIN 40 MG/0.4 ML SYRINGE SUBCUT SCH (21:00)
[2020-05-11] MEDS ORDERED: BISACODYL 5 MG TABLET PO ONE (21:20)
[2020-05-11] MEDS: LACTULOSE 20 GM/30 ML UDCUP PO SCH (22:00)
[2020-05-12] MEDS: PANTOPRAZOLE 40 MG TABLET PO SCH (08:14)
[2020-05-12] MEDS: LACTULOSE 20 GM/30 ML UDCUP PO SCH ×2 (08:14→20:24)
[2020-05-12] MEDS: LEVOFLOXACIN INJ 500 MG in PREMIX 1 EACH IV SCH (17:10)
[2020-05-12] MEDS: MEMANTINE 5 MG TABLET PO SCH (20:16)
[2020-05-12] MEDS: DONEPEZIL 10 MG TABLET PO SCH (20:16)
[2020-05-12] MEDS: ENOXAPARIN 60 MG/0.6 ML SYRINGE SUBCUT SCH (20:16)
[2020-05-12] MEDS: SIMVASTATIN 40 MG TABLET PO SCH (20:16)
[2020-05-12] MEDS: AMITRIPTYLINE 50 MG TABLET PO SCH (20:16)
[2020-05-12] MEDS ORDERED: METOPROLOL SUCCINATE XL 50 MG TABLET PO ONE (21:37)
[2020-05-13 04:40] LABS: Basophils % 0.2 % (0.0-0.8); Eosinophils # 0.2 10*3/uL (0.0-0.87); Eosinophils % 3.1 % (0.00-10.9); Hematocrit 29.2 VOL% (35.7-47.0); Hemoglobin 8.9 GM/DL (12.0-16.0); Immature Granulocytes % 0.2 %; Immature Granulocytes Absolute 0.01 #; Lymphocytes # 2.2 10*3/uL (1.4-4.0); Lymphocytes % 37.4 % (21.3-54.2); Mean Corpuscular HGB Conc 30.5 GM/DL (32-36); Mean Corpuscular Volume 85.9 FL (87-102); Mean Platelet Volume 9.6 FL (9.6-12.0); Monocytes % 9.1 % (1.7-12.7); Platelet Count 239 T/CUMM (130-400); Red Cell Distribution Width 17.2 % (9.3-17.3); White Blood Count 5.8 T/CUMM (4-12)
[2020-05-13 04:55] LABS: Calcium 9.6 MG/DL (8.5-10.1); Osmolality,Calculated 278.3 MOS/KG (273-304)
[2020-05-13] MEDS: ENOXAPARIN 60 MG/0.6 ML SYRINGE SUBCUT SCH (09:29)
[2020-05-13] MEDS: MEMANTINE 5 MG TABLET PO SCH ×2 (09:30→20:20)
[2020-05-13] MEDS: PANTOPRAZOLE 40 MG TABLET PO SCH (09:30)
[2020-05-13] MEDS: LACTULOSE 20 GM/30 ML UDCUP PO SCH ×2 (09:30→20:31)
[2020-05-13] MEDS: TAMSULOSIN 0.4 MG CAPSULE PO SCH (09:30)
[2020-05-13] MEDS: LEVOFLOXACIN INJ 500 MG in PREMIX 1 EACH IV SCH (14:49)
[2020-05-13] MEDS: DONEPEZIL 10 MG TABLET PO SCH (20:19)
[2020-05-13] MEDS: DOCUSATE SODIUM 100 MG CAPSULE PO SCH (20:19)
[2020-05-13] MEDS: DOXYCYCLINE HYCLATE 100 MG CAPSULE PO SCH (20:20)
[2020-05-13] MEDS: POLYETHYLENE GLYCOL POWDER 17 GM PACK PO SCH (20:20)
[2020-05-13] MEDS: SIMVASTATIN 40 MG TABLET PO SCH (20:20)
[2020-05-13] MEDS: AMITRIPTYLINE 50 MG TABLET PO SCH (20:20)
[2020-05-13] MEDS: APIXABAN 5 MG TABLET PO SCH (20:20)
[2020-05-14] MEDS: DOXYCYCLINE HYCLATE 100 MG CAPSULE PO SCH ×2 (08:14→20:26)
[2020-05-14] MEDS: APIXABAN 5 MG TABLET PO SCH (08:15)
[2020-05-14] MEDS: POLYETHYLENE GLYCOL POWDER 17 GM PACK PO SCH ×3 (08:15→20:26)
[2020-05-14] MEDS: LACTULOSE 20 GM/30 ML UDCUP PO SCH ×2 (08:15→20:26)
[2020-05-14] MEDS: PANTOPRAZOLE 40 MG TABLET PO SCH (08:15)
[2020-05-14] MEDS: TAMSULOSIN 0.4 MG CAPSULE PO SCH (08:15)
[2020-05-14] MEDS: DOCUSATE SODIUM 100 MG CAPSULE PO SCH ×2 (10:07→20:26)
[2020-05-14] MEDS: MEMANTINE 5 MG TABLET PO SCH ×2 (10:13→20:26)
[2020-05-14] MEDS ORDERED: FUROSEMIDE 20 MG/2 ML VIAL IV ONE (14:34)
[2020-05-14] MEDS ORDERED: FUROSEMIDE 20 MG/2 ML VIAL ONE (14:34)
[2020-05-14 14:53] LABS: ABG HCO3 26.2 MMOL/L (20-26); ABG PH 7.518 (7.35-7.45); ABG TCO2 22.2 MMOL/L (23-27)
[2020-05-14 15:13] LABS: Calcium 9.8 MG/DL (8.5-10.1); Osmolality,Calculated 278.3 MOS/KG (273-304)
[2020-05-14] MEDS: RIVAROXABAN 15 MG TABLET PO SCH (16:03)
[2020-05-14] MEDS: METOPROLOL SUCCINATE XL 50 MG TABLET PO SCH (16:33)
[2020-05-14] MEDS: DONEPEZIL 10 MG TABLET PO SCH (20:25)
[2020-05-14] MEDS: AMITRIPTYLINE 50 MG TABLET PO SCH (20:26)
[2020-05-14] MEDS: SIMVASTATIN 40 MG TABLET PO SCH (20:26)
[2020-05-15 06:06] LABS: Basophils % 0.1 % (0.0-0.8); Eosinophils # 0.1 10*3/uL (0.0-0.87); Eosinophils % 1.7 % (0.00-10.9); Hematocrit 31.6 VOL% (35.7-47.0); Hemoglobin 9.6 GM/DL (12.0-16.0); Immature Granulocytes % 1.3 %; Lymphocytes # 1.7 10*3/uL (1.4-4.0); Lymphocytes % 22.7 % (21.3-54.2); Mean Corpuscular HGB Conc 30.4 GM/DL (32-36); Mean Corpuscular Volume 86.8 FL (87-102); Mean Platelet Volume 9.6 FL (9.6-12.0); Monocytes % 10.5 % (1.7-12.7); Neutrophils % 63.7 % (38.7-73.9); Platelet Count 244 T/CUMM (130-400); Red Blood Count 3.64 MC/CUMM (3.8-5.5); Red Cell Distribution Width 17.2 % (9.3-17.3); White Blood Count 7.5 T/CUMM (4-12)
[2020-05-15 06:30] LABS: Albumin 2.9 G/DL (3.4-5.0); Bilirubin,Total 0.4 MG/DL (0.2-1.0); Calcium 10.4 MG/DL (8.5-10.1); Ferritin 35.3 ng/ml (8-252); Osmolality,Calculated 279.3 MOS/KG (273-304); Total Protein 6.9 G/DL (6.4-8.3)
[2020-05-15 06:37] LABS: Folate 11.6 NG/ML (5.4-24.0); Vitamin B12 841 PG/ML (211-911)
[2020-05-15] MEDS ORDERED: RIVAROXABAN 15 MG TABLET PO SCH (08:00)
[2020-05-15 08:16] LABS: Sedimentation Rate-Westergren 56 MM/HR (0-30)
[2020-05-15 08:53] LABS: Hemoglobin A1 (Alkaline) 97.1 % (96.5-98.5); Hemoglobin A2 (Alkaline) 2.9 % (1.5-3.5)
[2020-05-15] MEDS: LACTULOSE 20 GM/30 ML UDCUP PO SCH ×3 (09:04→20:45)
[2020-05-15] MEDS: DOXYCYCLINE HYCLATE 100 MG CAPSULE PO SCH ×2 (09:04→20:41)
[2020-05-15] MEDS: POLYETHYLENE GLYCOL POWDER 17 GM PACK PO SCH ×3 (09:04→20:46)
[2020-05-15] MEDS: PANTOPRAZOLE 40 MG TABLET PO SCH (09:05)
[2020-05-15] MEDS: MEMANTINE 5 MG TABLET PO SCH ×2 (09:05→20:42)
[2020-05-15] MEDS: METOPROLOL SUCCINATE XL 50 MG TABLET PO SCH (09:05)
[2020-05-15] MEDS: RIVAROXABAN 15 MG TABLET PO SCH ×3 (09:05→20:42)
[2020-05-15] MEDS: POTASSIUM CHLORIDE 20 MEQ TABLET PO PRN ×4 (09:05→16:15)
[2020-05-15] MEDS: DOCUSATE SODIUM 100 MG CAPSULE PO SCH ×2 (09:05→20:45)
[2020-05-15] MEDS: TAMSULOSIN 0.4 MG CAPSULE PO SCH (09:05)
[2020-05-15] MEDS: DONEPEZIL 10 MG TABLET PO SCH (20:42)
[2020-05-15] MEDS: AMITRIPTYLINE 50 MG TABLET PO SCH (20:42)
[2020-05-15] MEDS: SIMVASTATIN 40 MG TABLET PO SCH (20:42)
[2020-05-16 05:39] LABS: Basophils % 0.2 % (0.0-0.8); Eosinophils # 0.1 10*3/uL (0.0-0.87); Eosinophils % 1.2 % (0.00-10.9); Hematocrit 31.4 VOL% (35.7-47.0); Hemoglobin 9.6 GM/DL (12.0-16.0); Immature Granulocytes % 0.3 %; Immature Granulocytes Absolute 0.03 #; Lymphocytes # 2.1 10*3/uL (1.4-4.0); Lymphocytes % 21.3 % (21.3-54.2); Mean Corpuscular HGB Conc 30.6 GM/DL (32-36); Mean Corpuscular Volume 87.5 FL (87-102); Monocytes % 10.9 % (1.7-12.7); Neutrophils % 66.1 % (38.7-73.9); Platelet Count 238 T/CUMM (130-400); Red Blood Count 3.59 MC/CUMM (3.8-5.5); Red Cell Distribution Width 17.5 % (9.3-17.3); White Blood Count 9.8 T/CUMM (4-12)
[2020-05-16 06:09] LABS: Calcium 10.6 MG/DL (8.5-10.1); Osmolality,Calculated 280.4 MOS/KG (273-304)
[2020-05-16] MEDS ORDERED: MAGNESIUM CHLORIDE 64 MG TABLET PO SCH (09:00)
[2020-05-16] MEDS: DOCUSATE SODIUM 100 MG CAPSULE PO SCH (09:46)
[2020-05-16] MEDS: METOPROLOL SUCCINATE XL 50 MG TABLET PO SCH (09:46)
[2020-05-16] MEDS: RIVAROXABAN 15 MG TABLET PO SCH (09:46)
[2020-05-16] MEDS: POLYETHYLENE GLYCOL POWDER 17 GM PACK PO SCH (09:46)
[2020-05-16] MEDS: PANTOPRAZOLE 40 MG TABLET PO SCH (09:47)
[2020-05-16] MEDS: MEMANTINE 5 MG TABLET PO SCH (09:47)
[2020-05-16] MEDS: LACTULOSE 20 GM/30 ML UDCUP PO SCH (09:47)
[2020-05-16] MEDS: DOXYCYCLINE HYCLATE 100 MG CAPSULE PO SCH (09:47)
[2020-05-16] MEDS: TAMSULOSIN 0.4 MG CAPSULE PO SCH (09:47)
[2020-05-16] MEDS ORDERED: METHENAMINE HIPPURATE 1 GM TABLET PO SCH (14:30)
[2020-05-16 16:28] VITALS: BP 129/75
[2020-05-16 17:46] LABS: Soluble Transf Receptor (sTfR) 4.6 mg/L (1.8 - 4.6)
== END 2020-05-16 16:39 | disposition home health service (06) | DRG 175 ==
LOC: EDUNIT# → EDBD → N.ED 17:52 → N.EDINP 17:52 → SUATTDRO 20:54 → N.EDINP 22:45 → N.4E 23:33
PROVIDERS: ADMIT Internal Medicine; ATTEND Hospitalist

== ENCOUNTER 2021-11-14 19:54 | Inpatient (IN) ==
[2021-11-14 21:07] LABS: Basophils % 0.2 % (0.0-0.8); Eosinophils # 0.2 10*3/uL (0.0-0.87); Eosinophils % 2.3 % (0.00-10.9); Hematocrit 27.3 VOL% (35.7-47.0); Immature Granulocytes % 0.3 %; Immature Granulocytes Absolute 0.03 #; Lymphocytes % 42.4 % (21.3-54.2); Mean Corpuscular HGB Conc 29.3 GM/DL (32-36); Mean Corpuscular Volume 79.6 FL (87-102); Mean Platelet Volume 10.5 FL (9.6-12.0); Monocytes % 8.2 % (1.7-12.7); Neutrophils % 46.6 % (38.7-73.9); Platelet Count 308 T/CUMM (130-400); Red Blood Count 3.43 MC/CUMM (3.8-5.5); Red Cell Distribution Width 19.7 % (9.3-17.3); White Blood Count 9.3 T/CUMM (4-12)
[2021-11-14 21:28] LABS: Albumin 2.6 G/DL (3.4-5.0); Bilirubin,Total 0.5 MG/DL (0.20-1.00); Calcium 10.1 MG/DL (8.5-10.1); Osmolality,Calculated 285.3 MOS/KG (273-304); Potassium 3.6 MMOL/L (3.5-5.1); Total Protein 7.1 G/DL (6.4-8.2)
[2021-11-14] MEDS ORDERED: LEVOFLOXACIN INJ 500 MG/100 ML PREMIX IV STA (21:56)
[2021-11-14] MEDS ORDERED: hydrALAZINE 20 MG/1 ML VIAL IV PRN (22:00)
[2021-11-14] MEDS ORDERED: ACETAMINOPHEN 325 MG TABLET PO PRN (22:00)
[2021-11-14] MEDS ORDERED: NICOTINE 21 MG/24 HR PATCH TRANSDERM PRN (22:00)
[2021-11-14] MEDS ORDERED: GLUCAGON 1 MG VIAL IM PRN (22:00)
[2021-11-14] MEDS ORDERED: guaiFENesin/DM ER 600-30 MG TABLET PO PRN (22:00)
[2021-11-14] MEDS ORDERED: diphenhydrAMINE CAP 25 MG CAPSULE PO PRN (22:00)
[2021-11-14] MEDS ORDERED: DEXTROSE 10% 250 ML BAG IV PRN (22:00)
[2021-11-15] MEDS: ALBUTEROL/IPRATROPIUM 3 ML NEB RESP TX SCH ×4 (01:11→19:27)
[2021-11-15 05:09] LABS: Basophils % 0.1 % (0.0-0.8); Eosinophils # 0.1 10*3/uL (0.0-0.87); Eosinophils % 1.5 % (0.00-10.9); Hematocrit 26.2 VOL% (35.7-47.0); Hemoglobin 7.5 GM/DL (12.0-16.0); Immature Granulocytes % 0.2 %; Immature Granulocytes Absolute 0.02 #; Lymphocytes # 3.2 10*3/uL (1.4-4.0); Lymphocytes % 36.1 % (21.3-54.2); Mean Corpuscular HGB Conc 28.6 GM/DL (32-36); Mean Corpuscular Volume 79.9 FL (87-102); Mean Platelet Volume 10.5 FL (9.6-12.0); Monocytes % 8.9 % (1.7-12.7); Neutrophils % 53.2 % (38.7-73.9); Platelet Count 267 T/CUMM (130-400); Red Blood Count 3.28 MC/CUMM (3.8-5.5); Red Cell Distribution Width 19.7 % (9.3-17.3); White Blood Count 8.8 T/CUMM (4-12)
[2021-11-15 05:27] LABS: Calcium 10.3 MG/DL (8.5-10.1); Osmolality,Calculated 284.1 MOS/KG (273-304); Potassium 3.2 MMOL/L (3.5-5.1)
[2021-11-15] MEDS ORDERED: MAGNESIUM SULF RIDER 4 GM/100 ML PREMIX IV PRN (06:17)
[2021-11-15] MEDS ORDERED: MAGNESIUM SULF RIDER 2 GM/50 ML PREMIX IV PRN (06:17)
[2021-11-15] MEDS: POTASSIUM CHLORIDE 20 MEQ TABLET PO PRN ×3 (06:38→16:19)
[2021-11-15 09:35] LABS: ABG Base Excess 4.1 MMOL/L (-2.5-2.5); ABG HCO3 27.5 MMOL/L (20-26); ABG Oxygen Saturation 96.9 % (95-100); ABG PCO2 36.3 MM HG (35-48); ABG PH 7.498 (7.35-7.45); ABG PO2 87.4 MM HG (80-95); ABG TCO2 28.7 MMOL/L (23-27); Pt O2 Delivery Device Room Air
[2021-11-15] MEDS: HEPARIN 5,000 UNIT/1 ML VIAL SUBCUT SCH ×2 (10:21→21:18)
[2021-11-15] MEDS: PANTOPRAZOLE 40 MG TABLET PO SCH (10:21)
[2021-11-15] MEDS: DOCUSATE SODIUM 100 MG CAPSULE PO SCH ×2 (10:21→21:16)
[2021-11-15] MEDS: carvediloL 3.125 MG TABLET PO SCH ×2 (16:17→21:17)
[2021-11-15] MEDS ORDERED: carvediloL 3.125 MG TABLET PO SCH (21:00)
[2021-11-15] MEDS ORDERED: LEVOFLOXACIN INJ 750 MG/150 ML PREMIX IV SCH (21:00)
[2021-11-15] MEDS: SIMVASTATIN 40 MG TABLET PO SCH (21:17)
[2021-11-15] MEDS: MEMANTINE 5 MG TABLET PO SCH (21:17)
[2021-11-15] MEDS: DONEPEZIL 10 MG TABLET PO SCH (21:17)
[2021-11-15] MEDS: METHENAMINE HIPPURATE 1 GM TABLET PO SCH (21:17)
[2021-11-16] MEDS: ALBUTEROL/IPRATROPIUM 3 ML NEB RESP TX SCH ×4 (01:41→19:29)
[2021-11-16 05:07] LABS: Basophils % 0.1 % (0.0-0.8); Eosinophils # 0.1 10*3/uL (0.0-0.87); Hematocrit 26.1 VOL% (35.7-47.0); Hemoglobin 7.6 GM/DL (12.0-16.0); Immature Granulocytes % 0.2 %; Immature Granulocytes Absolute 0.02 #; Mean Corpuscular HGB Conc 29.1 GM/DL (32-36); Mean Corpuscular Volume 80.1 FL (87-102); Mean Platelet Volume 10.3 FL (9.6-12.0); Monocytes % 9.7 % (1.7-12.7); Platelet Count 290 T/CUMM (130-400); Red Blood Count 3.26 MC/CUMM (3.8-5.5); Red Cell Distribution Width 19.9 % (9.3-17.3); White Blood Count 9.4 T/CUMM (4-12)
[2021-11-16 05:25] LABS: Calcium 10.7 MG/DL (8.5-10.1); Potassium 4.4 MMOL/L (3.5-5.1)
[2021-11-16 05:32] LABS: % Iron Saturation 8.9 % (18-50)
[2021-11-16 05:37] LABS: Folate 13.85 NG/ML (5.38-24.0)
[2021-11-16] MEDS: DOCUSATE SODIUM 100 MG CAPSULE PO SCH ×2 (09:30→21:45)
[2021-11-16] MEDS: MEMANTINE 5 MG TABLET PO SCH ×2 (09:30→21:45)
[2021-11-16] MEDS: METHENAMINE HIPPURATE 1 GM TABLET PO SCH ×2 (09:30→21:45)
[2021-11-16] MEDS: carvediloL 3.125 MG TABLET PO SCH ×2 (09:30→21:45)
[2021-11-16] MEDS: TAMSULOSIN 0.4 MG CAPSULE PO SCH (09:30)
[2021-11-16] MEDS: PANTOPRAZOLE 40 MG TABLET PO SCH (09:30)
[2021-11-16] MEDS: FERROUS SULFATE 325 MG TABLET PO SCH ×2 (09:30→21:46)
[2021-11-16] MEDS: HEPARIN 5,000 UNIT/1 ML VIAL SUBCUT SCH ×2 (09:31→21:45)
[2021-11-16] MEDS ORDERED: SODIUM CHLORIDE 0.9% 1,000 ML IV PRN (11:06)
[2021-11-16] MEDS: ONDANSETRON 4 MG/2 ML VIAL IV PRN ×2 (12:12→23:24)
[2021-11-16 18:49] LABS: Hematocrit 36.9 VOL% (35.7-47.0)
[2021-11-16 18:50] LABS: Hemoglobin 11.4 GM/DL (12.0-16.0)
[2021-11-16] MEDS: DONEPEZIL 10 MG TABLET PO SCH (21:45)
[2021-11-16] MEDS: ZALEPLON 5 MG CAPSULE PO PRN (21:46)
[2021-11-16] MEDS: SIMVASTATIN 40 MG TABLET PO SCH (21:46)
[2021-11-17] MEDS: ALBUTEROL/IPRATROPIUM 3 ML NEB RESP TX SCH ×4 (00:49→19:17)
[2021-11-17 06:08] LABS: Basophils % 0.2 % (0.0-0.8); Eosinophils % 0.2 % (0.00-10.9); Hematocrit 35.9 VOL% (35.7-47.0); Immature Granulocytes % 0.3 %; Immature Granulocytes Absolute 0.04 #; Lymphocytes # 2.9 10*3/uL (1.4-4.0); Mean Corpuscular HGB Conc 30.6 GM/DL (32-36); Mean Corpuscular Volume 77.9 FL (87-102); Monocytes % 6.9 % (1.7-12.7); Neutrophils % 68.4 % (38.7-73.9); Platelet Count 326 T/CUMM (130-400); Red Blood Count 4.61 MC/CUMM (3.8-5.5); Red Cell Distribution Width 18.8 % (9.3-17.3); White Blood Count 12.2 T/CUMM (4-12)
[2021-11-17 06:21] LABS: Calcium 10.9 MG/DL (8.5-10.1); Osmolality,Calculated 281.3 MOS/KG (273-304); Potassium 4.5 MMOL/L (3.5-5.1)
[2021-11-17] MEDS: DOCUSATE SODIUM 100 MG CAPSULE PO SCH ×2 (08:43→21:00)
[2021-11-17] MEDS: carvediloL 3.125 MG TABLET PO SCH ×2 (08:44→21:00)
[2021-11-17] MEDS: FERROUS SULFATE 325 MG TABLET PO SCH ×2 (08:45→21:00)
[2021-11-17] MEDS: TAMSULOSIN 0.4 MG CAPSULE PO SCH (08:45)
[2021-11-17] MEDS: METHENAMINE HIPPURATE 1 GM TABLET PO SCH ×2 (08:48→21:00)
[2021-11-17] MEDS: MEMANTINE 5 MG TABLET PO SCH ×2 (08:49→21:00)
[2021-11-17] MEDS: PANTOPRAZOLE 40 MG TABLET PO SCH (08:50)
[2021-11-17] MEDS: HEPARIN 5,000 UNIT/1 ML VIAL SUBCUT SCH ×2 (08:52→21:02)
[2021-11-17] MEDS: ONDANSETRON 4 MG/2 ML VIAL IV PRN (10:18)
[2021-11-17] MEDS: DONEPEZIL 10 MG TABLET PO SCH (21:00)
[2021-11-17] MEDS: SIMVASTATIN 40 MG TABLET PO SCH (21:05)
[2021-11-17] MEDS: ZALEPLON 5 MG CAPSULE PO PRN (22:56)
[2021-11-18] MEDS: ALBUTEROL/IPRATROPIUM 3 ML NEB RESP TX SCH ×4 (01:38→19:28)
[2021-11-18 05:07] LABS: Basophils % 0.2 % (0.0-0.8); Eosinophils # 0.1 10*3/uL (0.0-0.87); Eosinophils % 0.5 % (0.00-10.9); Hematocrit 37.2 VOL% (35.7-47.0); Hemoglobin 11.1 GM/DL (12.0-16.0); Immature Granulocytes % 0.4 %; Immature Granulocytes Absolute 0.05 #; Lymphocytes % 24.8 % (21.3-54.2); Mean Corpuscular HGB Conc 29.8 GM/DL (32-36); Monocytes % 8.3 % (1.7-12.7); Neutrophils % 65.8 % (38.7-73.9); Platelet Count 343 T/CUMM (130-400); Red Blood Count 4.65 MC/CUMM (3.8-5.5); Red Cell Distribution Width 19.2 % (9.3-17.3); White Blood Count 12.2 T/CUMM (4-12)
[2021-11-18 05:31] LABS: Calcium 11.3 MG/DL (8.5-10.1)
[2021-11-18] MEDS: DOCUSATE SODIUM 100 MG CAPSULE PO SCH ×2 (09:12→20:58)
[2021-11-18] MEDS: FERROUS SULFATE 325 MG TABLET PO SCH ×2 (09:14→20:58)
[2021-11-18] MEDS: HEPARIN 5,000 UNIT/1 ML VIAL SUBCUT SCH ×2 (09:14→20:59)
[2021-11-18] MEDS: carvediloL 3.125 MG TABLET PO SCH (09:14)
[2021-11-18] MEDS: TAMSULOSIN 0.4 MG CAPSULE PO SCH (09:14)
[2021-11-18] MEDS: MEMANTINE 5 MG TABLET PO SCH ×2 (09:15→20:59)
[2021-11-18] MEDS: PANTOPRAZOLE 40 MG TABLET PO SCH (09:15)
[2021-11-18] MEDS: METHENAMINE HIPPURATE 1 GM TABLET PO SCH ×2 (09:15→20:59)
[2021-11-18] MEDS ORDERED: SODIUM CHLORIDE 0.9% 500 ML IV ONE (09:57)
[2021-11-18] MEDS ORDERED: carvediloL 3.125 MG TABLET PO ONE (09:59)
[2021-11-18 12:46] LABS: Mucus,Urine Occasional /LPF (Occasional); Protein,Urine Trace MG/DL; RBC,Urine 11 /HPF (0-4); Squamous Epithelial Cell,Urine Occasional /HPF (0-10); Urine Appearance Clear (Clear); Urine Color Yellow (Yellow); Urine Specific Gravity 1.015 (1.001-1.035)
[2021-11-18 12:47] LABS: Bilirubin,Urine Negative (Negative); Blood, Urine Small mg/dL (Negative); Glucose,Urine (UA) Negative (Negative); Ketones,Urine Trace mg/dL (Negative); Nitrite,Urine Negative (Negative); Urine Urobilinogen 0.2 EU/DL (<2.0)
[2021-11-18] MEDS: SODIUM CHLORIDE 0.9% 1,000 ML IV SCH (16:27)
[2021-11-18] MEDS ORDERED: ZOLEDRONIC ACID 2 MG in SODIUM CHLORIDE 0.9% 100 ML IV ONE (17:00)
[2021-11-18 19:55] LABS: Parathyroid Hormone Intact 83.4 PG/ML (18.4-80.1)
[2021-11-18] MEDS: carvediloL 6.25 MG TABLET PO SCH (20:58)
[2021-11-18] MEDS: DONEPEZIL 10 MG TABLET PO SCH (20:59)
[2021-11-18] MEDS: SIMVASTATIN 40 MG TABLET PO SCH (20:59)
[2021-11-18] MEDS: ONDANSETRON 4 MG/2 ML VIAL IV PRN (23:08)
[2021-11-19] MEDS: ALBUTEROL/IPRATROPIUM 3 ML NEB RESP TX SCH ×3 (00:23→18:55)
[2021-11-19] MEDS: SODIUM CHLORIDE 0.9% 1,000 ML IV SCH (04:20)
[2021-11-19 06:47] LABS: Basophils % 0.2 % (0.0-0.8); Eosinophils # 0.1 10*3/uL (0.0-0.87); Eosinophils % 0.5 % (0.00-10.9); Hematocrit 35.8 VOL% (35.7-47.0); Hemoglobin 10.8 GM/DL (12.0-16.0); Immature Granulocytes % 0.4 %; Immature Granulocytes Absolute 0.05 #; Lymphocytes % 15.4 % (21.3-54.2); Mean Corpuscular HGB Conc 30.2 GM/DL (32-36); Mean Corpuscular Volume 80.1 FL (87-102); Mean Platelet Volume 10.8 FL (9.6-12.0); Monocytes % 6.9 % (1.7-12.7); Neutrophils % 76.6 % (38.7-73.9); Platelet Count 339 T/CUMM (130-400); Red Blood Count 4.47 MC/CUMM (3.8-5.5); Red Cell Distribution Width 18.8 % (9.3-17.3); White Blood Count 12.9 T/CUMM (4-12)
[2021-11-19 07:22] LABS: Calcium 10.7 MG/DL (8.5-10.1); Osmolality,Calculated 280.3 MOS/KG (273-304); Potassium 4.1 MMOL/L (3.5-5.1)
[2021-11-19] MEDS: TAMSULOSIN 0.4 MG CAPSULE PO SCH (08:03)
[2021-11-19] MEDS: FERROUS SULFATE 325 MG TABLET PO SCH ×2 (08:03→21:36)
[2021-11-19] MEDS: carvediloL 6.25 MG TABLET PO SCH (08:03)
[2021-11-19] MEDS: DOCUSATE SODIUM 100 MG CAPSULE PO SCH ×2 (08:03→21:36)
[2021-11-19] MEDS: PANTOPRAZOLE 40 MG TABLET PO SCH (08:03)
[2021-11-19] MEDS: MEMANTINE 5 MG TABLET PO SCH ×2 (08:03→21:36)
[2021-11-19] MEDS: METHENAMINE HIPPURATE 1 GM TABLET PO SCH ×2 (08:03→21:36)
[2021-11-19] MEDS: HEPARIN 5,000 UNIT/1 ML VIAL SUBCUT SCH (08:12)
[2021-11-19] MEDS ORDERED: MAGNESIUM SULF RIDER 2 GM/50 ML PREMIX IV ONE (08:37)
[2021-11-19] MEDS: ONDANSETRON 4 MG/2 ML VIAL IV PRN ×2 (08:45→22:00)
[2021-11-19] MEDS: DILTIAZEM 30 MG TABLET PO SCH ×3 (08:48→21:36)
[2021-11-19] MEDS ORDERED: DILTIAZEM INJ 100 MG in SODIUM CHLORIDE 0.9% 100 ML IV SCH (09:30)
[2021-11-19] MEDS ORDERED: HEPARIN DRIP 25,000 UNITS/500 ML PREMIX IV SCH (15:00)
[2021-11-19] MEDS: SOTALOL 80 MG TABLET PO SCH ×2 (15:24→21:36)
[2021-11-19] MEDS: PSYLLIUM POWDER 3.7 GM/PACK PO SCH (15:27)
[2021-11-19] MEDS: ENOXAPARIN 40 MG/0.4 ML SYRINGE SUBCUT SCH (15:29)
[2021-11-19] MEDS ORDERED: METOPROLOL TARTRATE 25 MG TABLET PO SCH (21:00)
[2021-11-19] MEDS ORDERED: VERAPAMIL SR 120 MG TABLET PO SCH (21:00)
[2021-11-19] MEDS: DONEPEZIL 10 MG TABLET PO SCH (21:36)
[2021-11-20] MEDS: ALBUTEROL/IPRATROPIUM 3 ML NEB RESP TX SCH ×4 (01:00→19:25)
[2021-11-20] MEDS: DILTIAZEM 30 MG TABLET PO SCH ×2 (03:15→10:10)
[2021-11-20] MEDS: SODIUM CHLORIDE 0.9% 1,000 ML IV SCH ×3 (03:32→18:16)
[2021-11-20 04:19] LABS: Basophils % 0.1 % (0.0-0.8); Eosinophils % 0.1 % (0.00-10.9); Hematocrit 32.8 VOL% (35.7-47.0); Hemoglobin 9.7 GM/DL (12.0-16.0); Immature Granulocytes % 0.3 %; Immature Granulocytes Absolute 0.02 #; Lymphocytes % 14.4 % (21.3-54.2); Mean Corpuscular HGB Conc 29.6 GM/DL (32-36); Mean Corpuscular Volume 81.6 FL (87-102); Mean Platelet Volume 10.1 FL (9.6-12.0); Monocytes % 10.2 % (1.7-12.7); Neutrophils % 74.9 % (38.7-73.9); Platelet Count 265 T/CUMM (130-400); Red Blood Count 4.02 MC/CUMM (3.8-5.5); White Blood Count 7.2 T/CUMM (4-12)
[2021-11-20 04:36] LABS: Calcium 9.5 MG/DL (8.5-10.1); Osmolality,Calculated 285.8 MOS/KG (273-304); Potassium 3.1 MMOL/L (3.5-5.1)
[2021-11-20] MEDS: ENOXAPARIN 40 MG/0.4 ML SYRINGE SUBCUT SCH ×2 (05:10→16:05)
[2021-11-20] MEDS ORDERED: DILTIAZEM CD 120 MG CAPSULE PO SCH (09:53)
[2021-11-20] MEDS: POTASSIUM CHLORIDE 20 MEQ TABLET PO PRN ×4 (10:08→16:04)
[2021-11-20] MEDS: FERROUS SULFATE 325 MG TABLET PO SCH ×2 (10:09→21:05)
[2021-11-20] MEDS: PSYLLIUM POWDER 3.7 GM/PACK PO SCH (10:09)
[2021-11-20] MEDS: SOTALOL 80 MG TABLET PO SCH ×2 (10:09→21:05)
[2021-11-20] MEDS: TAMSULOSIN 0.4 MG CAPSULE PO SCH (10:09)
[2021-11-20] MEDS: DOCUSATE SODIUM 100 MG CAPSULE PO SCH ×2 (10:09→21:05)
[2021-11-20] MEDS: METHENAMINE HIPPURATE 1 GM TABLET PO SCH ×2 (10:09→21:05)
[2021-11-20] MEDS: PANTOPRAZOLE 40 MG TABLET PO SCH (10:10)
[2021-11-20] MEDS: MEMANTINE 5 MG TABLET PO SCH ×2 (10:10→21:05)
[2021-11-20] MEDS: ONDANSETRON 4 MG TABLET PO PRN (13:11)
[2021-11-20] MEDS: DONEPEZIL 10 MG TABLET PO SCH (21:05)
[2021-11-20] MEDS: ONDANSETRON 4 MG/2 ML VIAL IV PRN (21:50)
[2021-11-21] MEDS: ALBUTEROL/IPRATROPIUM 3 ML NEB RESP TX SCH ×6 (03:42→19:52)
[2021-11-21] MEDS: ENOXAPARIN 40 MG/0.4 ML SYRINGE SUBCUT SCH ×2 (04:13→16:33)
[2021-11-21] MEDS: SODIUM CHLORIDE 0.9% 1,000 ML IV SCH ×2 (04:13→13:31)
[2021-11-21 05:27] LABS: Basophils % 0.1 % (0.0-0.8); Eosinophils % 0.1 % (0.00-10.9); Hematocrit 31.2 VOL% (35.7-47.0); Hemoglobin 9.4 GM/DL (12.0-16.0); Immature Granulocytes % 0.2 %; Immature Granulocytes Absolute 0.02 #; Lymphocytes # 1.6 10*3/uL (1.4-4.0); Mean Corpuscular HGB Conc 30.1 GM/DL (32-36); Mean Corpuscular Volume 80.8 FL (87-102); Mean Platelet Volume 10.6 FL (9.6-12.0); Monocytes % 9.3 % (1.7-12.7); Neutrophils % 72.3 % (38.7-73.9); Platelet Count 281 T/CUMM (130-400); Red Blood Count 3.86 MC/CUMM (3.8-5.5); Red Cell Distribution Width 19.3 % (9.3-17.3); White Blood Count 8.9 T/CUMM (4-12)
[2021-11-21 05:44] LABS: Calcium 8.3 MG/DL (8.5-10.1); Osmolality,Calculated 283.8 MOS/KG (273-304); Potassium 3.3 MMOL/L (3.5-5.1)
[2021-11-21] MEDS ORDERED: POTASSIUM CHLORIDE 20 MEQ TABLET PO ONE ×3 (07:17→10:00)
[2021-11-21] MEDS ORDERED: MAGNESIUM SULF RIDER 2 GM/50 ML PREMIX IV ONE (07:17)
[2021-11-21] MEDS ORDERED: METOPROLOL TARTRATE 5 MG/5 ML VIAL IV ONE ×2 (08:35→08:51)
[2021-11-21] MEDS ORDERED: METOCLOPRAMIDE 10 MG/2 ML VIAL ONE (08:35)
[2021-11-21] MEDS: METOCLOPRAMIDE 10 MG/2 ML VIAL IV SCH ×2 (08:43→21:26)
[2021-11-21] MEDS: SOTALOL 80 MG TABLET PO SCH ×2 (09:16→21:26)
[2021-11-21] MEDS: DILTIAZEM CD 120 MG CAPSULE PO SCH (09:17)
[2021-11-21] MEDS ORDERED: METOPROLOL TARTRATE 5 MG/5 ML VIAL IV PRN (09:29)
[2021-11-21] MEDS: METHENAMINE HIPPURATE 1 GM TABLET PO SCH ×2 (10:09→21:26)
[2021-11-21] MEDS: TAMSULOSIN 0.4 MG CAPSULE PO SCH (10:09)
[2021-11-21] MEDS: DOCUSATE SODIUM 100 MG CAPSULE PO SCH ×2 (10:09→21:28)
[2021-11-21] MEDS: PSYLLIUM POWDER 3.7 GM/PACK PO SCH (10:09)
[2021-11-21] MEDS: PANTOPRAZOLE 40 MG TABLET PO SCH (10:10)
[2021-11-21] MEDS: MEMANTINE 5 MG TABLET PO SCH ×2 (10:10→21:26)
[2021-11-21] MEDS: METOPROLOL TARTRATE 25 MG TABLET PO SCH ×2 (10:37→21:26)
[2021-11-21] MEDS: FERROUS SULFATE 325 MG TABLET PO SCH ×2 (10:37→16:33)
[2021-11-21] MEDS: DONEPEZIL 10 MG TABLET PO SCH (21:26)
[2021-11-22] MEDS: ALBUTEROL/IPRATROPIUM 3 ML NEB RESP TX SCH ×2 (00:25→07:43)
[2021-11-22] MEDS: SODIUM CHLORIDE 0.9% 1,000 ML IV SCH ×2 (02:55→21:32)
[2021-11-22] MEDS: ENOXAPARIN 40 MG/0.4 ML SYRINGE SUBCUT SCH ×2 (06:22→16:03)
[2021-11-22 06:39] LABS: Calcium 8.3 MG/DL (8.5-10.1); Osmolality,Calculated 278.3 MOS/KG (273-304)
[2021-11-22 06:46] LABS: Basophils % 0.3 % (0.0-0.8); Eosinophils % 0.3 % (0.00-10.9); Hematocrit 36.6 VOL% (35.7-47.0); Hemoglobin 10.9 GM/DL (12.0-16.0); Immature Granulocytes % 0.3 %; Immature Granulocytes Absolute 0.03 #; Lymphocytes # 2.3 10*3/uL (1.4-4.0); Lymphocytes % 24.7 % (21.3-54.2); Mean Corpuscular HGB Conc 29.8 GM/DL (32-36); Mean Platelet Volume 10.3 FL (9.6-12.0); Monocytes % 11.8 % (1.7-12.7); Neutrophils % 62.6 % (38.7-73.9); Platelet Count 313 T/CUMM (130-400); Red Blood Count 4.52 MC/CUMM (3.8-5.5); Red Cell Distribution Width 19.8 % (9.3-17.3); White Blood Count 9.2 T/CUMM (4-12)
[2021-11-22] MEDS: METOCLOPRAMIDE 10 MG/2 ML VIAL IV SCH ×2 (08:30→21:32)
[2021-11-22] MEDS: DOCUSATE SODIUM 100 MG CAPSULE PO SCH ×2 (08:30→21:27)
[2021-11-22] MEDS: DILTIAZEM CD 120 MG CAPSULE PO SCH (08:30)
[2021-11-22] MEDS: PSYLLIUM POWDER 3.7 GM/PACK PO SCH (08:30)
[2021-11-22] MEDS: MEMANTINE 5 MG TABLET PO SCH ×2 (08:30→21:27)
[2021-11-22] MEDS: METOPROLOL TARTRATE 25 MG TABLET PO SCH ×2 (08:30→21:27)
[2021-11-22] MEDS: PANTOPRAZOLE 40 MG TABLET PO SCH (08:31)
[2021-11-22] MEDS: TAMSULOSIN 0.4 MG CAPSULE PO SCH (08:31)
[2021-11-22] MEDS: METHENAMINE HIPPURATE 1 GM TABLET PO SCH ×2 (08:31→21:27)
[2021-11-22] MEDS: SOTALOL 80 MG TABLET PO SCH ×2 (08:31→21:27)
[2021-11-22] MEDS: FERROUS SULFATE 325 MG TABLET PO SCH ×2 (08:31→16:03)
[2021-11-22] MEDS: DONEPEZIL 10 MG TABLET PO SCH (21:27)
[2021-11-23] MEDS: ENOXAPARIN 40 MG/0.4 ML SYRINGE SUBCUT SCH ×2 (03:54→16:21)
[2021-11-23 05:56] LABS: Basophils % 0.2 % (0.0-0.8); Eosinophils % 0.2 % (0.00-10.9); Hematocrit 37.6 VOL% (35.7-47.0); Hemoglobin 11.4 GM/DL (12.0-16.0); Immature Granulocytes % 0.2 %; Immature Granulocytes Absolute 0.02 #; Lymphocytes % 18.1 % (21.3-54.2); Mean Corpuscular HGB Conc 30.3 GM/DL (32-36); Mean Corpuscular Volume 80.2 FL (87-102); Mean Platelet Volume 10.2 FL (9.6-12.0); Monocytes % 8.1 % (1.7-12.7); Neutrophils % 73.2 % (38.7-73.9); Platelet Count 291 T/CUMM (130-400); Red Blood Count 4.69 MC/CUMM (3.8-5.5); Red Cell Distribution Width 19.7 % (9.3-17.3); White Blood Count 10.8 T/CUMM (4-12)
[2021-11-23 06:16] LABS: Calcium 7.9 MG/DL (8.5-10.1); Osmolality,Calculated 275.5 MOS/KG (273-304); Potassium 3.3 MMOL/L (3.5-5.1)
[2021-11-23] MEDS: FERROUS SULFATE 325 MG TABLET PO SCH ×2 (08:17→16:24)
[2021-11-23] MEDS: PANTOPRAZOLE 40 MG TABLET PO SCH (08:17)
[2021-11-23] MEDS: DOCUSATE SODIUM 100 MG CAPSULE PO SCH ×2 (08:17→20:43)
[2021-11-23] MEDS: TAMSULOSIN 0.4 MG CAPSULE PO SCH (08:17)
[2021-11-23] MEDS: METOPROLOL TARTRATE 25 MG TABLET PO SCH ×2 (08:17→20:43)
[2021-11-23] MEDS: MEMANTINE 5 MG TABLET PO SCH ×2 (08:17→20:43)
[2021-11-23] MEDS: METOCLOPRAMIDE 10 MG/2 ML VIAL IV SCH ×2 (08:18→20:48)
[2021-11-23] MEDS: SOTALOL 80 MG TABLET PO SCH ×2 (08:18→20:43)
[2021-11-23] MEDS: PSYLLIUM POWDER 3.7 GM/PACK PO SCH (08:18)
[2021-11-23] MEDS: DILTIAZEM CD 120 MG CAPSULE PO SCH (08:19)
[2021-11-23] MEDS: POTASSIUM CHLORIDE RIDER 10 MEQ/100 ML PREMIX IV PRN ×4 (08:25→11:40)
[2021-11-23] MEDS: ONDANSETRON 4 MG TABLET PO PRN (09:26)
[2021-11-23] MEDS: SODIUM CHLORIDE 0.9% 1,000 ML IV SCH (12:57)
[2021-11-23] MEDS: DONEPEZIL 10 MG TABLET PO SCH (20:43)
[2021-11-24] MEDS: SODIUM CHLORIDE 0.9% 1,000 ML IV SCH ×2 (00:18→14:56)
[2021-11-24 05:21] LABS: Basophils % 0.2 % (0.0-0.8); Eosinophils % 0.4 % (0.00-10.9); Hematocrit 34.7 VOL% (35.7-47.0); Hemoglobin 10.5 GM/DL (12.0-16.0); Immature Granulocytes % 0.3 %; Immature Granulocytes Absolute 0.03 #; Lymphocytes # 2.1 10*3/uL (1.4-4.0); Mean Corpuscular HGB Conc 30.3 GM/DL (32-36); Mean Corpuscular Volume 80.1 FL (87-102); Mean Platelet Volume 10.6 FL (9.6-12.0); Monocytes % 9.6 % (1.7-12.7); Neutrophils % 69.5 % (38.7-73.9); Platelet Count 315 T/CUMM (130-400); Red Blood Count 4.33 MC/CUMM (3.8-5.5); Red Cell Distribution Width 19.7 % (9.3-17.3); White Blood Count 10.7 T/CUMM (4-12)
[2021-11-24 05:40] LABS: Calcium 7.5 MG/DL (8.5-10.1); Osmolality,Calculated 285.7 MOS/KG (273-304); Potassium 3.8 MMOL/L (3.5-5.1)
[2021-11-24 07:07] LABS: Total Protein (Chem) 6.8 G/DL (6.4-8.3)
[2021-11-24 09:29] LABS: Albumin (SPE) 3.5 G/DL (3.2-5.3); Albumin (SPE) Rel % 51.8 %; Alpha 1 (SPE) 0.3 G/DL (0.1-0.4); Alpha 1 (SPE) Rel % 4.2 %; Alpha 2 (SPE) 0.7 G/DL (0.4-1.0); Alpha 2 (SPE) Rel % 10.2 %; Beta (SPE) 0.8 G/DL (0.5-1.1); Beta (SPE) Rel % 11.1 %; Gamma (SPE) 1.5 G/DL (0.7-1.7); Gamma (SPE) Rel % 22.7 %
[2021-11-24] MEDS: SOTALOL 80 MG TABLET PO SCH ×2 (13:36→21:23)
[2021-11-24] MEDS: FERROUS SULFATE 325 MG TABLET PO SCH ×2 (13:36→17:04)
[2021-11-24] MEDS: TAMSULOSIN 0.4 MG CAPSULE PO SCH (13:36)
[2021-11-24] MEDS: MEMANTINE 5 MG TABLET PO SCH ×2 (13:37→21:23)
[2021-11-24] MEDS: DOCUSATE SODIUM 100 MG CAPSULE PO SCH ×2 (13:37→21:24)
[2021-11-24] MEDS: METOPROLOL TARTRATE 25 MG TABLET PO SCH ×2 (13:37→21:24)
[2021-11-24] MEDS: PANTOPRAZOLE 40 MG TABLET PO SCH (13:37)
[2021-11-24] MEDS: DILTIAZEM CD 120 MG CAPSULE PO SCH (13:38)
[2021-11-24] MEDS: METOCLOPRAMIDE 10 MG/2 ML VIAL IV SCH ×2 (13:40→21:28)
[2021-11-24] MEDS: PSYLLIUM POWDER 3.7 GM/PACK PO SCH (13:55)
[2021-11-24] MEDS: metroNIDAZOLE INJ 500 MG/100 ML PREMIX IV SCH ×2 (14:49→23:00)
[2021-11-24] MEDS: cefTRIAXone 1,000 MG in SODIUM CHLORIDE 0.9% 100 ML IV SCH (16:27)
[2021-11-24] MEDS: DONEPEZIL 10 MG TABLET PO SCH (21:24)
[2021-11-25] MEDS: SODIUM CHLORIDE 0.9% 1,000 ML IV SCH ×2 (01:25→16:23)
[2021-11-25 05:23] LABS: Basophils % 0.2 % (0.0-0.8); Eosinophils # 0.1 10*3/uL (0.0-0.87); Eosinophils % 0.5 % (0.00-10.9); Hematocrit 36.3 VOL% (35.7-47.0); Hemoglobin 11.2 GM/DL (12.0-16.0); Immature Granulocytes % 0.3 %; Immature Granulocytes Absolute 0.03 #; Lymphocytes # 1.8 10*3/uL (1.4-4.0); Lymphocytes % 15.2 % (21.3-54.2); Mean Corpuscular HGB Conc 30.9 GM/DL (32-36); Mean Corpuscular Volume 78.1 FL (87-102); Mean Platelet Volume 10.4 FL (9.6-12.0); Monocytes % 8.3 % (1.7-12.7); Neutrophils % 75.5 % (38.7-73.9); Platelet Count 301 T/CUMM (130-400); Red Blood Count 4.65 MC/CUMM (3.8-5.5); Red Cell Distribution Width 19.6 % (9.3-17.3); White Blood Count 11.7 T/CUMM (4-12)
[2021-11-25 05:49] LABS: Albumin 2.5 G/DL (3.4-5.0); Bilirubin,Total 0.5 MG/DL (0.20-1.00); Calcium 7.8 MG/DL (8.5-10.1); Potassium 3.1 MMOL/L (3.5-5.1)
[2021-11-25] MEDS: metroNIDAZOLE INJ 500 MG/100 ML PREMIX IV SCH ×2 (06:11→13:58)
[2021-11-25] MEDS: POTASSIUM CHLORIDE RIDER 10 MEQ/100 ML PREMIX IV PRN ×2 (07:24→09:30)
[2021-11-25] MEDS ORDERED: MAGNESIUM SULF RIDER 2 GM/50 ML PREMIX IV ONE (08:00)
[2021-11-25] MEDS: METOCLOPRAMIDE 10 MG/2 ML VIAL IV SCH ×2 (08:54→22:37)
[2021-11-25] MEDS ORDERED: DIAZEPAM 5 MG TABLET PO ONE (10:30)
[2021-11-25 13:01] LABS: Total Volume 2825 mL
[2021-11-25] MEDS: FERROUS SULFATE 325 MG TABLET PO SCH ×2 (14:00→17:15)
[2021-11-25] MEDS: MEMANTINE 5 MG TABLET PO SCH ×2 (14:01→22:37)
[2021-11-25] MEDS: DOCUSATE SODIUM 100 MG CAPSULE PO SCH ×2 (14:01→22:37)
[2021-11-25] MEDS: SOTALOL 80 MG TABLET PO SCH ×2 (14:01→22:37)
[2021-11-25] MEDS: SODIUM BICARBONATE 650 MG TABLET PO SCH ×2 (14:01→22:38)
[2021-11-25] MEDS: TAMSULOSIN 0.4 MG CAPSULE PO SCH (15:14)
[2021-11-25] MEDS: PANTOPRAZOLE 40 MG TABLET PO SCH (15:15)
[2021-11-25] MEDS: DILTIAZEM CD 180 MG CAPSULE PO SCH (15:15)
[2021-11-25] MEDS: PSYLLIUM POWDER 3.7 GM/PACK PO SCH (15:15)
[2021-11-25] MEDS: cefTRIAXone 1,000 MG in SODIUM CHLORIDE 0.9% 100 ML IV SCH (15:16)
[2021-11-25] MEDS: SODIUM CHLORIDE 0.45% 1,000 ML IV SCH (16:22)
[2021-11-25] MEDS: DONEPEZIL 10 MG TABLET PO SCH (22:36)
[2021-11-25] MEDS: ENOXAPARIN 40 MG/0.4 ML SYRINGE SUBCUT SCH (22:37)
[2021-11-26] MEDS: metroNIDAZOLE INJ 500 MG/100 ML PREMIX IV SCH ×4 (00:19→23:49)
[2021-11-26] MEDS: SODIUM CHLORIDE 0.9% 1,000 ML IV SCH (04:53)
[2021-11-26 07:39] LABS: Basophils % 0.1 % (0.0-0.8); Eosinophils % 0.1 % (0.00-10.9); Hematocrit 35.9 VOL% (35.7-47.0); Hemoglobin 10.9 GM/DL (12.0-16.0); Immature Granulocytes % 0.4 %; Immature Granulocytes Absolute 0.04 #; Lymphocytes # 1.1 10*3/uL (1.4-4.0); Lymphocytes % 10.3 % (21.3-54.2); Mean Corpuscular HGB Conc 30.4 GM/DL (32-36); Mean Corpuscular Volume 79.1 FL (87-102); Mean Platelet Volume 10.9 FL (9.6-12.0); Monocytes % 8.2 % (1.7-12.7); Neutrophils % 80.9 % (38.7-73.9); Platelet Count 316 T/CUMM (130-400); Red Blood Count 4.54 MC/CUMM (3.8-5.5); Red Cell Distribution Width 19.9 % (9.3-17.3); White Blood Count 10.2 T/CUMM (4-12)
[2021-11-26 07:57] LABS: Calcium 9.4 MG/DL (8.5-10.1); Osmolality,Calculated 294.3 MOS/KG (273-304); Potassium 2.7 MMOL/L (3.5-5.1)
[2021-11-26] MEDS: TAMSULOSIN 0.4 MG CAPSULE PO SCH (10:43)
[2021-11-26] MEDS: DILTIAZEM CD 180 MG CAPSULE PO SCH (10:43)
[2021-11-26] MEDS: PANTOPRAZOLE 40 MG TABLET PO SCH (10:44)
[2021-11-26] MEDS: SOTALOL 80 MG TABLET PO SCH ×2 (10:44→20:47)
[2021-11-26] MEDS: MEMANTINE 5 MG TABLET PO SCH ×2 (10:45→20:47)
[2021-11-26] MEDS: SODIUM BICARBONATE 650 MG TABLET PO SCH (10:45)
[2021-11-26] MEDS: FERROUS SULFATE 325 MG TABLET PO SCH ×2 (10:45→18:22)
[2021-11-26] MEDS: ENOXAPARIN 40 MG/0.4 ML SYRINGE SUBCUT SCH ×2 (10:46→20:47)
[2021-11-26] MEDS: PSYLLIUM POWDER 3.7 GM/PACK PO SCH (10:46)
[2021-11-26] MEDS: DOCUSATE SODIUM 100 MG CAPSULE PO SCH ×2 (10:47→20:47)
[2021-11-26] MEDS: METOCLOPRAMIDE 10 MG/2 ML VIAL IV SCH ×2 (10:49→20:57)
[2021-11-26] MEDS: POTASSIUM CHLORIDE RIDER 10 MEQ/100 ML PREMIX IV PRN ×5 (13:25→18:18)
[2021-11-26] MEDS: SODIUM CHLORIDE 0.45% 1,000 ML IV SCH ×2 (13:30→13:41)
[2021-11-26] MEDS: DONEPEZIL 10 MG TABLET PO SCH (20:47)
[2021-11-26] MEDS: cefTRIAXone 1,000 MG in SODIUM CHLORIDE 0.9% 100 ML IV SCH (20:48)
[2021-11-27] MEDS: SODIUM CHLORIDE 0.45% 1,000 ML IV SCH ×2 (01:39→18:11)
[2021-11-27] MEDS: metroNIDAZOLE INJ 500 MG/100 ML PREMIX IV SCH ×3 (06:55→21:50)
[2021-11-27 08:58] LABS: Basophils % 0.2 % (0.0-0.8); Eosinophils # 0.3 10*3/uL (0.0-0.87); Eosinophils % 2.2 % (0.00-10.9); Hematocrit 37.2 VOL% (35.7-47.0); Hemoglobin 11.5 GM/DL (12.0-16.0); Immature Granulocytes % 0.3 %; Immature Granulocytes Absolute 0.04 #; Lymphocytes # 1.9 10*3/uL (1.4-4.0); Lymphocytes % 15.1 % (21.3-54.2); Mean Corpuscular HGB Conc 30.9 GM/DL (32-36); Mean Corpuscular Volume 78.3 FL (87-102); Mean Platelet Volume 9.9 FL (9.6-12.0); Monocytes % 9.1 % (1.7-12.7); Neutrophils % 73.1 % (38.7-73.9); Platelet Count 282 T/CUMM (130-400); Red Blood Count 4.75 MC/CUMM (3.8-5.5); White Blood Count 12.3 T/CUMM (4-12)
[2021-11-27 09:08] LABS: Calcium 9.4 MG/DL (8.5-10.1); Osmolality,Calculated 279.3 MOS/KG (273-304)
[2021-11-27] MEDS ORDERED: MAGNESIUM SULF RIDER 2 GM/50 ML PREMIX IV ONE (09:54)
[2021-11-27] MEDS: DILTIAZEM CD 180 MG CAPSULE PO SCH (10:30)
[2021-11-27] MEDS: SOTALOL 80 MG TABLET PO SCH ×2 (10:30→20:07)
[2021-11-27] MEDS: FERROUS SULFATE 325 MG TABLET PO SCH ×2 (10:30→18:13)
[2021-11-27] MEDS: PANTOPRAZOLE 40 MG TABLET PO SCH (10:30)
[2021-11-27] MEDS: TAMSULOSIN 0.4 MG CAPSULE PO SCH (10:30)
[2021-11-27] MEDS: MEMANTINE 5 MG TABLET PO SCH ×2 (10:31→20:07)
[2021-11-27] MEDS: ENOXAPARIN 40 MG/0.4 ML SYRINGE SUBCUT SCH ×2 (10:31→20:07)
[2021-11-27] MEDS: PSYLLIUM POWDER 3.7 GM/PACK PO SCH (10:31)
[2021-11-27] MEDS: METOCLOPRAMIDE 10 MG/2 ML VIAL IV SCH ×2 (10:31→20:10)
[2021-11-27] MEDS: DOCUSATE SODIUM 100 MG CAPSULE PO SCH ×2 (10:34→20:07)
[2021-11-27] MEDS: POTASSIUM CHLORIDE RIDER 10 MEQ/100 ML PREMIX IV PRN ×4 (18:11→23:36)
[2021-11-27] MEDS: DONEPEZIL 10 MG TABLET PO SCH (20:07)
[2021-11-27] MEDS: cefTRIAXone 1,000 MG in SODIUM CHLORIDE 0.9% 100 ML IV SCH (20:27)
[2021-11-28] MEDS: POTASSIUM CHLORIDE RIDER 10 MEQ/100 ML PREMIX IV PRN (02:25)
[2021-11-28] MEDS: SODIUM CHLORIDE 0.45% 1,000 ML IV SCH ×2 (06:10→17:24)
[2021-11-28 06:21] LABS: Calcium 8.5 MG/DL (8.5-10.1); Osmolality,Calculated 276.4 MOS/KG (273-304); Potassium 3.5 MMOL/L (3.5-5.1)
[2021-11-28] MEDS: metroNIDAZOLE INJ 500 MG/100 ML PREMIX IV SCH ×2 (06:31→14:09)
[2021-11-28 06:39] LABS: Basophils % 0.1 % (0.0-0.8); Eosinophils # 0.2 10*3/uL (0.0-0.87); Eosinophils % 2.4 % (0.00-10.9); Hemoglobin 9.9 GM/DL (12.0-16.0); Immature Granulocytes % 0.6 %; Immature Granulocytes Absolute 0.05 #; Lymphocytes # 1.8 10*3/uL (1.4-4.0); Lymphocytes % 20.6 % (21.3-54.2); Mean Corpuscular HGB Conc 30.9 GM/DL (32-36); Mean Corpuscular Volume 79.2 FL (87-102); Mean Platelet Volume 11.2 FL (9.6-12.0); Monocytes % 10.8 % (1.7-12.7); Neutrophils % 65.5 % (38.7-73.9); Platelet Count 234 T/CUMM (130-400); Red Blood Count 4.04 MC/CUMM (3.8-5.5); Red Cell Distribution Width 20.1 % (9.3-17.3); White Blood Count 8.7 T/CUMM (4-12)
[2021-11-28] MEDS ORDERED: MAGNESIUM SULF RIDER 2 GM/50 ML PREMIX IV ONE (07:24)
[2021-11-28] MEDS: TAMSULOSIN 0.4 MG CAPSULE PO SCH (09:32)
[2021-11-28] MEDS: FERROUS SULFATE 325 MG TABLET PO SCH ×2 (09:32→18:05)
[2021-11-28] MEDS: MEMANTINE 5 MG TABLET PO SCH ×2 (09:32→21:58)
[2021-11-28] MEDS: DILTIAZEM CD 180 MG CAPSULE PO SCH (09:32)
[2021-11-28] MEDS: PANTOPRAZOLE 40 MG TABLET PO SCH (09:32)
[2021-11-28] MEDS: SOTALOL 80 MG TABLET PO SCH ×2 (09:32→21:58)
[2021-11-28] MEDS: METOCLOPRAMIDE 10 MG/2 ML VIAL IV SCH ×2 (09:33→21:58)
[2021-11-28] MEDS: ENOXAPARIN 40 MG/0.4 ML SYRINGE SUBCUT SCH (09:33)
[2021-11-28] MEDS: DOCUSATE SODIUM 100 MG CAPSULE PO SCH ×2 (09:35→21:58)
[2021-11-28] MEDS: PSYLLIUM POWDER 3.7 GM/PACK PO SCH (10:17)
[2021-11-28] MEDS: RIVAROXABAN 15 MG TABLET PO SCH (18:05)
[2021-11-28] MEDS: cefTRIAXone 1,000 MG in SODIUM CHLORIDE 0.9% 100 ML IV SCH (20:00)
[2021-11-28] MEDS ORDERED: cefTRIAXone 1,000 MG VIAL IM ONE (20:36)
[2021-11-28] MEDS: metroNIDAZOLE 500 MG TABLET PO SCH (21:58)
[2021-11-28] MEDS: DONEPEZIL 10 MG TABLET PO SCH (21:58)
[2021-11-29 04:40] LABS: Basophils % 0.1 % (0.0-0.8); Eosinophils # 0.1 10*3/uL (0.0-0.87); Eosinophils % 1.6 % (0.00-10.9); Hematocrit 33.2 VOL% (35.7-47.0); Hemoglobin 10.3 GM/DL (12.0-16.0); Immature Granulocytes % 0.2 %; Immature Granulocytes Absolute 0.02 #; Lymphocytes # 1.7 10*3/uL (1.4-4.0); Lymphocytes % 18.8 % (21.3-54.2); Mean Corpuscular Volume 78.5 FL (87-102); Mean Platelet Volume 10.3 FL (9.6-12.0); Monocytes % 11.1 % (1.7-12.7); Neutrophils % 68.2 % (38.7-73.9); Platelet Count 247 T/CUMM (130-400); Red Blood Count 4.23 MC/CUMM (3.8-5.5); Red Cell Distribution Width 19.9 % (9.3-17.3)
[2021-11-29 05:05] LABS: Calcium 8.9 MG/DL (8.5-10.1); Osmolality,Calculated 283.8 MOS/KG (273-304); Potassium 2.9 MMOL/L (3.5-5.1)
[2021-11-29 05:06] LABS: Hypochromia 2+; Microcytosis 1+; Target Cells Few
[2021-11-29 05:07] LABS: Ovalocytes Few; Platelet Estimate Normal; Polychromasia Slight
[2021-11-29] MEDS: metroNIDAZOLE 500 MG TABLET PO SCH (06:45)
[2021-11-29] MEDS: SODIUM CHLORIDE 0.45% 1,000 ML IV SCH (06:47)
[2021-11-29] MEDS ORDERED: POTASSIUM CHLORIDE 20 MEQ TABLET PO ONE (07:29)
[2021-11-29] MEDS ORDERED: METOCLOPRAMIDE 5 MG TABLET PO PRN (07:46)
[2021-11-29 08:42] VITALS: BP 109/70
[2021-11-29] MEDS: TAMSULOSIN 0.4 MG CAPSULE PO SCH (09:33)
[2021-11-29] MEDS: PANTOPRAZOLE 40 MG TABLET PO SCH (09:34)
[2021-11-29] MEDS: FERROUS SULFATE 325 MG TABLET PO SCH (09:34)
[2021-11-29] MEDS: MEMANTINE 5 MG TABLET PO SCH (09:34)
[2021-11-29] MEDS: DOCUSATE SODIUM 100 MG CAPSULE PO SCH (09:34)
[2021-11-29] MEDS: DILTIAZEM CD 180 MG CAPSULE PO SCH (09:35)
[2021-11-29] MEDS: SOTALOL 80 MG TABLET PO SCH (09:35)
[2021-11-29] MEDS: RIVAROXABAN 15 MG TABLET PO SCH (09:37)
[2021-11-29] MEDS: PSYLLIUM POWDER 3.7 GM/PACK PO SCH (09:46)
[2021-11-29] MEDS ORDERED: cephALEXin 500 MG CAPSULE PO SCH (10:00)
== END 2021-11-29 10:49 | disposition home health service (06) | DRG 444 ==
LOC: N.ED 19:54 → SUATTDRO 22:00 → N.EDINP 22:00 → INTOOBSV 22:00 → N.TELEN 11-15 00:04 → SUATTDRO 11-19 10:31
PROVIDERS: ADMIT Internal Medicine Geriatric Medicine; ATTEND Internal Medicine